=== PATIENT | female | born 1950 | race Caucasian/White ===

== ENCOUNTER → 2020-01-10 20:23 | Outpatient (ROUT) | payer MEDICARE, BC, SELFPAY ==
[2020-01-10 20:31] LABS: Appearance Urine UA CLEAR; Bilirubin Urine UA NEGATIVE (NEGATIVE); Color Urine UA YELLOW; Glucose Urine UA NEGATIVE (Negative); Ketones Urine UA NEGATIVE (NEGATIVE); Leukocyte Esterase Urine UA NEGATIVE (NEGATIVE); Nitrite Urine UA NEGATIVE (Negative); Occult Blood Urine UA NEGATIVE (Negative); Protein Urine UA NEGATIVE (Negative); Specific Gravity Urine UA <=1.005 (1.000-1.035); Urobilinogen Urine UA 0.2 E.U./dL (0.2)
[2020-01-10 20:55] LABS: Bacteria Urine Few (2-10); RBC Urine 0-1/HPF (0-5/HPF); Squamous Epithelial Cell Urine 0-1 /HPF (0-5/HPF); WBC Urine 0-1/HPF (0-5/HPF)
[2020-01-10 20:56] LABS: Culture Indicated Urine Cult Not Indicated
== END ==
PROVIDERS: Visit Provider Internal Medicine
DX: I10 Essential (primary) hypertension (principal)
CPT/HCPCS: 81001

== ENCOUNTER → 2020-01-18 10:14 | Outpatient (CLI) | payer MEDICARE, BC, SELFPAY ==
--- NOTE | 2020-01-18 | DI.RAD.S_ITS ---
PROCEDURE: XR CHEST 2V INDICATIONS: Chronic Cough TECHNIQUE: 2 views of the chest were acquired. COMPARISON: None. FINDINGS: Surgical changes and devices: None. Lungs and pleura: Lungs are clear. No pleural effusions or pneumothorax. Mediastinum: Mediastinal contours are normal. Heart size is normal. Bones and chest wall: No suspicious bony abnormalities. Soft tissues appear unremarkable. IMPRESSION: No acute cardiopulmonary disease process. Dictated by: Kezia Batista MD, PhD on 01/18/2020 at 16:57 Approved by: Kezia Batista MD, PhD on 01/18/2020 at 16:57
[2020-01-18 10:53] LABS: Bacteria Urine None Seen; RBC Urine None Seen (0-5/HPF)
[2020-01-18 12:32] LABS: Add Manual Diff / Slide Review NO; Basophils Absolute Auto 0 /uL (0-100); Basophils Percent Auto 0.5 % (0-2); Eosinophils Absolute Auto 100 /uL (0-450); Eosinophils Percent Auto 3.2 % (2-4); Hematocrit 43.2 % (36-46); Hemoglobin 14.5 g/dL (12.0-16.0); Lymphocytes Absolute Auto 1900 /uL (1100-4500); Lymphocytes Percent Auto 46.4 % (25-40); Mean Corpuscular HGB Conc 33.5 % (30-36); Mean Corpuscular Hemoglobin 32.2 PG (26-34); Mean Corpuscular Volume 96.2 fL (80-100); Monocytes Absolute Auto 600 /uL (0-900); Monocytes Percent Auto 13.6 % (3-14); Neutrophils Absolute Auto 1500 /uL (1500-7000); Neutrophils Percent Auto 36.3 % (50-75); Platelet Count 229 X10^3/uL (150-400); Red Blood Cell Count 4.49 X10^6/uL (4.0-5.2); Red Cell Distribution Width 13.1 % (11.6-14.8); White Blood Cell Count 4.2 X10^3/uL (4.5-11.0)
[2020-01-18 12:37] LABS: Appearance Urine UA CLEAR; Bilirubin Urine UA NEGATIVE (NEGATIVE); Color Urine UA YELLOW; Glucose Urine UA NEGATIVE (Negative); Ketones Urine UA NEGATIVE (NEGATIVE); Leukocyte Esterase Urine UA NEGATIVE (NEGATIVE); Nitrite Urine UA NEGATIVE (Negative); Occult Blood Urine UA NEGATIVE (Negative); Protein Urine UA NEGATIVE (Negative); Specific Gravity Urine UA <=1.005 (1.000-1.035); Urobilinogen Urine UA 0.2 E.U./dL (0.2)
[2020-01-18 12:39] LABS: pH Urine UA 6.5 (4.5-8.0)
[2020-01-18 12:40] LABS: Amorphous Sediment Urine 3+; Culture Indicated Urine Cult Not Indicated; Squamous Epithelial Cell Urine 5-10 /HPF (0-5/HPF); WBC Urine 1-5/HPF (0-5/HPF)
[2020-01-18 12:44] LABS: Alanine Aminotransferase 62 IU/L (<35); Albumin 4.4 g/dL (3.5-5.0); Albumin Globulin Ratio 1.4 (1.0-2.8); Alkaline Phosphatase 58 U/L (38-126); Aspartate Aminotransferase 48 IU/L (14-36); BUN Creatinine Ratio 21.6 (6-22); Bilirubin Total 0.6 mg/dL (0.2-1.3); Blood Urea Nitrogen 11 mg/dL (7-17); Calcium 9.6 mg/dL (8.4-10.2); Carbon Dioxide 31 mmol/L (22-32); Chloride 101 mmol/L (98-107); Cholesterol 265 mg/dL (140-199); Estimated Glomerular Filt Rate > 60.0 mL/min (>60); Globulin 3.2 g/dL (1.7-4.1); Glucose 131 mg/dL (80-110); HDL Cholesterol 62 mg/dL (40-60); HEMOLYSIS 20 (0-50); LDL Cholesterol Calculated 176 mg/dL (<100); Potassium 4.6 mmol/L (3.4-5.1); Sodium 137 mmol/L (137-145); Total Protein 7.6 g/dL (6.3-8.2); Triglycerides 133 mg/dL (35-150)
[2020-01-18 12:55] LABS: NT-proBNP (BNP-Adult 18+) 139 pg/mL (<125)
[2020-01-18 13:44] LABS: TSH w/ Reflex to FT4 0.62 uIU/mL (0.47-4.68)
== END ==
PROVIDERS: PCP Internal Medicine; Referring Provider Internal Medicine; Visit Provider Internal Medicine
DX: R05 Cough (principal); I10 Essential (primary) hypertension; M54.16 Radiculopathy, lumbar region; G47.33 Obstructive sleep apnea (adult) (pediatric); E78.5 Hyperlipidemia, unspecified; R06.00 Dyspnea, unspecified
CPT/HCPCS: 36415; 71046; 80053; 80061; 81001; 83880; 84443; 85025

== ENCOUNTER → 2020-02-22 07:56 | Outpatient (CLI) | payer MEDICARE, BC, SELFPAY ==
--- NOTE | 2020-02-22 | DI.ECHO.S_ITS ---
[facility] +---------+ : : [address] : [address] : : : : [id number] : : : : Phone: [phone]+ Echocardiogram Report + + :Name: NICHOLAS HYDE Study Date: 02/22/2020 Height: 64 in : :[facility] Weight: 186 lb : : Gender: Female BSA: 1.9 m2 : :: 1950 Age: 69 yrs BP: 145/90 mmHg: :Reason For Study: DYSPNEA : :Ordering Physician: NGOZI SORENSEN : :L Performed By: Jossie Strickland : :Referring: NGOZI SORENSEN L : + + Interpretation Summary Left ventricular systolic function is normal with an estimated ejection fraction of 55 to 60% without any focal wall motion abnormality. There is a probable diastolic relaxation abnormality but normal filling pressures. The right ventricle appears normal. Right ventricular systolic pressure is estimated at 25 mmHg with a CVP of 3 mmHg. The left atrium is mildly enlarged and the right atrium is normal in size. There is a small disturbed jet of flow on the right side of of the septum secundum, suggesting a small patent foramen ovale, but probably without any hemodynamic impact. There is mild mitral and mild tricuspid regurgitation but no other significant valvular abnormality. The ascending aorta is mild??moderately enlarged and the aortic arch is at the upper limits of normal. Procedure: A two-dimensional transthoracic echocardiogram with color flow and Doppler was performed. The study quality was technically adequate. There is no prior echocardiogram noted for this patient. The patient was in sinus rhythm with heart rates between 68-82 bpm during the exam. Left Ventricle: The left ventricle appears normal in size, wall thickness, and systolic function without any focal wall motion abnormalities. The estimated left ventricular end diastolic volume is 68 ml. The ejection fraction is estimated to be 55-60%. Diastolic parameters suggest a relaxation abnormality of the left ventricle, consistent with probable normal filling pressures. Right Ventricle: The right ventricle is normal in size and function. Atria: The left atrium is mildly dilated. Right atrial size is normal. A patent foramen ovale is present. Mitral Valve: There is mild mitral annular calcification. The mitral valve leaflets are mildly calcified. There is mild mitral regurgitation. Aortic Valve: The aortic valve is trileaflet. The aortic valve opens well. There is no aortic valve stenosis. No aortic regurgitation is present. Tricuspid Valve: The tricuspid valve is normal in structure and function. There is mild tricuspid regurgitation. The right ventricular systolic pressure is estimated to be at least 25 mmHg based on an estimated right atrial pressure of 3 mm Hg. Pulmonic Valve: The pulmonic valve leaflets are thin and pliable; valve motion is normal. There is trace pulmonic regurgitation. Great Vessels: The aortic root is normal size. The ascending aorta is mild- moderately enlarged. The aortic arch is at the upper limits of normal in size. The IVC is of normal diameter and collapses greater than 50% with a sniff. This suggests a low right atrial pressure of 3 mm Hg. Pericardium/ Pleura There is no pericardial effusion. There is no pleural effusion. MMode/2D Measurements & Calculations LVIDd: 3.7 cm LVOT diam: 2.0 cm LVIDs: 2.7 cm Ao root diam: 3.6 cm FS: 27.2 % asc Aorta Diam: 3.9 cm EPSS: 0.49 cm Ao Arch Diam (Prox Trans): 3.0 cm IVSd: 0.93 cm LVPWd: 0.97 cm LV menchaca. diameter/BSA (cm/m^2): 1.9 LV sys. diameter/BSA (cm/m^2): 1.4 LA A2 area: 26.8 cm2 RA long axis: 4.9 cm LA A4 area: 20.1 cm2 RA area: 13.1 cm2 LA length (vol): 5.9 cm RA vol: 29.7 ml LA vol: 77.8 ml RA : 15.7 ml/m2 LA vol index: 41.0 ml/m2 IVC diam: 1.3 cm RVD1 (basal): 3.1 cm TAPSE: 1.9 cm Doppler Measurements & Calculations Ao V2 max: 127.9 cm/sec LVOT Max Shantanu: 84.8 cm/sec Ao V2 mean: 91.7 cm/sec LV V1 max P.9 mmHg Ao max P.5 mmHg LV V1 VTI: 21.1 cm Ao mean P.7 mmHg ALONSO(I,D): 2.1 cm2 Ao V2 VTI: 31.4 cm ALONSO(V,D): 2.0 cm2 sev ratio: 0.67 ALONSO indexed to BSA (cm^2/m^2): 1.1 MV E max shantanu: 76.0 cm/sec TR max shantanu: 234.2 cm/sec MV A max shantanu: 85.4 cm/sec TR max P.9 mmHg MV E/A: 0.89 PA V2 max: 52.6 cm/sec Med Peak E' Shantanu: 4.8 cm/sec PA V2 mean: 34.5 cm/sec E/E' med: 15.9 PA mean P.54 mmHg Lat Peak E' Shantanu: 6.6 cm/sec PA pr(Accel): 8.8 mmHg E/E' lat: 11.6 E/e' average: 13.8 MV dec time: 0.23 sec SV(LVOT): 64.6 ml Reading Physician:01:24 PM
[2020-02-22 10:14] LABS: Alanine Aminotransferase 81 IU/L (<35); Cholesterol 216 mg/dL (140-199); HDL Cholesterol 69 mg/dL (40-60); LDL Cholesterol Calculated 120 mg/dL (<100); Triglycerides 137 mg/dL (35-150)
== END ==
PROVIDERS: PCP Internal Medicine; Referring Provider Internal Medicine; Visit Provider Internal Medicine
DX: I08.1 Rheumatic disorders of both mitral and tricuspid valves (principal); I77.89 Other specified disorders of arteries and arterioles; R06.00 Dyspnea, unspecified; E78.5 Hyperlipidemia, unspecified; E11.65 Type 2 diabetes mellitus with hyperglycemia; I10 Essential (primary) hypertension; R74.01 Elevation of levels of liver transaminase levels
CPT/HCPCS: 36415; 80061; 84460; 93306

== ENCOUNTER → 2020-04-11 14:22 | Outpatient (CLI) | payer MEDICARE, BC, SELFPAY ==
[2020-04-11 15:35] LABS: Add Manual Diff / Slide Review NO; Basophils Absolute Auto 0 /uL (0-100); Basophils Percent Auto 0.5 % (0-2); Eosinophils Absolute Auto 100 /uL (0-450); Eosinophils Percent Auto 3.1 % (2-4); Hematocrit 41.4 % (36-46); Hemoglobin 13.9 g/dL (12.0-16.0); Lymphocytes Absolute Auto 1900 /uL (1100-4500); Lymphocytes Percent Auto 41.9 % (25-40); Mean Corpuscular HGB Conc 33.6 % (30-36); Mean Corpuscular Hemoglobin 32.1 PG (26-34); Mean Corpuscular Volume 95.6 fL (80-100); Monocytes Absolute Auto 500 /uL (0-900); Monocytes Percent Auto 10.7 % (3-14); Neutrophils Absolute Auto 2000 /uL (1500-7000); Neutrophils Percent Auto 43.8 % (50-75); Platelet Count 243 X10^3/uL (150-400); Red Blood Cell Count 4.33 X10^6/uL (4.0-5.2); White Blood Cell Count 4.5 X10^3/uL (4.5-11.0)
[2020-04-11 16:04] LABS: BUN Creatinine Ratio 15.2 (6-22); Blood Urea Nitrogen 7 mg/dL (7-17); Calcium 9.7 mg/dL (8.4-10.2); Carbon Dioxide 28 mmol/L (22-32); Chloride 105 mmol/L (98-107); Estimated Glomerular Filt Rate > 60.0 mL/min (>60); Glucose 124 mg/dL (80-110); HEMOLYSIS 19 (0-50); Potassium 4.5 mmol/L (3.4-5.1); Sodium 137 mmol/L (137-145)
== END ==
PROVIDERS: PCP Internal Medicine; Referring Provider Orthopaedic Surgery; Visit Provider Orthopaedic Surgery
DX: Z01.818 Encounter for other preprocedural examination (principal); Z01.812 Encounter for preprocedural laboratory examination
CPT/HCPCS: 36415; 80048; 85025; 93005; 93010

== ENCOUNTER → 2020-04-30 15:28 | Outpatient (CLI) | payer MEDICARE, BC, SELFPAY ==
[2020-04-30 18:05] LABS: COVID19 -Nasal RAPID Negative (Negative)
== END ==
PROVIDERS: PCP Internal Medicine; Visit Provider Physician Assistant
DX: Z01.812 Encounter for preprocedural laboratory examination (principal); Z20.822 Contact with and (suspected) exposure to COVID-19
CPT/HCPCS: 87635; C9803

== ENCOUNTER 2020-05-01 08:23 | Inpatient (IN) | payer MEDICARE, BC, SELFPAY ==
[2020-05-01] VITALS (20 sets, daily range): BP systolic 83–144; BP diastolic 44–85; PULSE 55–74; RESP 9–20; TEMP 36–36.7; O2SAT 90–100; BMI 29.7
[2020-05-01] MEDS: LACTATED RINGERS 1,000 ML 42 ML IV ×2 (09:03→10:48)
--- NOTE | 2020-05-01 09:06 | PM.PREOP ---
Pre-operative Note COVID-19 COVID-19 status: Negative Result date/Date tested (Pos, Neg/Pending): 04/30/20 Interval Note History & Physical reviewed/Exam performed by Physician: Yes Changes to H&P: No
[2020-05-01 09:46] LABS: Glucose 121 mg/dL (80-110)
[2020-05-01 09:48] LABS: Hemoglobin A1C% w Est Avg Glu 6.2 % (4.0-6.0)
[2020-05-01] MEDS: CEFAZOLIN 2 GM/100 ML FROZ.PIGGY IV ×2 (10:00→18:26)
--- NOTE | 2020-05-01 10:10 | DI.RAD.S_ITS ---
PROCEDURE: XR LUMBAR SPINE 2-3V INDICATIONS: L3-4, L4-5 TLIF/LAMINECTOMIES TECHNIQUE: 2 views of the lumbar spine were acquired. COMPARISON: None. FINDINGS: Intraoperative spot fluoroscopic images demonstrate postsurgical changes with fixation hardware including pedicle screws and interbody rods extending from the L3 through L5 levels with disc spacers at the L3-4 and L4-5 levels. IMPRESSION: Postsurgical changes noted at the L3-4 through L4-5 levels. Dictated by: Kameron Perez M.D. on 05/01/2020 at 14:34 Approved by: Kameron Perez M.D. on 05/01/2020 at 14:35
--- NOTE | 2020-05-01 10:38 | SUR.OPER ---
Prone on spine table, head in foam head support, padded chest and pelvic supports, gel pad at knees, lower legs supported by pillows; nipples, genitalia and toes free of pressure, arms secured on foam padded arm boards at <90 degrees abduction. Tape over blanket at thigh secured to table.
[2020-05-01] MEDS: THROMBIN (RECOMBINANT) 5,000 UNIT VIAL 5000 UNIT TOP (10:45)
[2020-05-01] MEDS: VANCOMYCIN 1,000 MG VIAL 1000 MG TOP (10:45)
[2020-05-01] MEDS: SODIUM CHLORIDE 0.9% 1,000 ML, GENTAMICIN 80 MG IRR (10:46)
[2020-05-01] MEDS: BUPIVACAINE 0.5% (PF) 4 ML, MORPHINE-PF 4 MG, BUTORPHANOL 1 MG, fentaNYL 100 MCG INJ (10:47)
--- NOTE | 2020-05-01 13:48 | P.OP_ITS ---
Operative Date/Time/Diagnoses Date of procedure: 05/01/20 Time of procedure: 13:52 Pre-op diagnosis: Lumbar stenosis with radiculopathy Lumbar spondylolisthesis Post-op diagnosis: same Procedure & Clinicians Procedure: L3-4, L4-5 TLIF (posterior/posterior interbody fusion)with cages L3, L4, L5 screws Iliac crest bone graft aspirate L3-4, L4-5 laminectomies Use of microscope Placement of epidural catheter Same procedure as scheduled: Yes Indications: [age] year old female with intractable pain from stenosis. They had failed conservative management and requested operative intervention. Risks and benefits of surgery were discussed and appropriate consents were obtained. Surgeon: Marek Srinivasan Director Of It Operations: Deanne Brush Anesthesia Type: General Operative Notes Findings: None Closure Type: primary Specimen(s): none sent Prosthetic devices, grafts, tissues, transplants, or devices: NuVasive MAS Reline screws Globus Rise cage Applied: catheter Estimated Blood Loss (mL): 20 Procedure in detail: The patient was brought to the operating room and intubated on the table. A time-out was performed. They were then rolled over to the well- padded Silvano table in the prone position. Preoperative antibiotics were given. The back was prepped and draped in the standard sterile fashion. Using fluoroscopy, a 6 cm longitudinal incision was made to the right of the midline. We used Bovie to come down to and split the lumbodorsal fascia. Using fluoroscopy and monitoring, we then percutaneously placed Jamshidi needles down the pedicles of L3, L4, and L5 on the right side. These were changed out to guidewires and then we tapped and then placed the NuVasive MAS Reline screw shanks. We then opened up the retractors and used Bovie to clear up the posterolateral gutter as well as medially along the lamina to the spinous processes. A bur was used to decorticate the transverse processes. We brought in the microscope. Using a combination of bur and Kerrison rongeurs, a laminectomy was performed from the right side. We cleared over past the midline and carefully depressed the dura until we were able to decompress the opposite side. We cleared out the neural foramen with a partial facetectomy. This completed the laminectomy at L4-5. This was separate and distinct from the TLIF approach as we were decompressing the canal with the traversing L5 and S1 roots as well as the exiting L4 roots. We then began the TLIF prep. A complete facetectomy was finished on this side at L4-5. We carefully cleaned up the remainder of the foramen until we could easily retract the exiting root as well as clearing medially below the dura and expose the disc space. The disc was prepped with bipolar and then an annulotomy was performed. We performed a diskectomy using a combination of paddles, sh avers, pituitaries, and curettes. We distracted the disc using a paddle and locked the retractor in an open position. We then filled the disc space with Osteocel bone graft. We then placed the globus rise cage under fluoroscopy and then filled this in with more bone graft. The distraction on the retractor was released to compress down. This completed the posterior interbody fusion portion of the TLIF at L4-5. We then went up to the L3-4 level in open the retractors. We cleaned the gutter decorticated the transverse process. We cleared medially. Again a complete laminectomy was performed from the right-hand side using a bur and Kerrisons. We carefully depressed the dura and reach to the opposite side remove the facet hypertrophy and ligamentum hypertrophy. We had to perform facetectomies to clear out the foramen. This completed the laminectomy at L3-4. This was distinct from the TLIF approach as we had to decompress the canal with the traversing L4 through S1 roots as well as the exiting L3 roots. We then carefully retracted the dura and prepped the disc space. A diskectomy was performed with pituitaries and curettes. We placed bone graft into the disc space and placed our globus rise cage and expanded it under fluoroscopy. More bone graft was packed in. This completed the posterior interbody fusion portion of the TLIF at L3-4. The wound was copiously irrigated. An epidural catheter was then prepped with 4 mL of 0.5% Marcaine, 1 mg Stadol, 4 mg Duramorph, and 100 mcg of fentanyl and placed in the spinal canal by carefully depressing the dura and advancing it 6 cm cephalad under the remaining lamina without resistance. We then placed the screw heads, aida, and locked down the set screws. The wound was copiously irrigated. A small stab incision was made over the PSIS. We used a Jamshidi needle to aspirate several mL of bone marrow from the pelvis. This was mixed with the remaining Osteocel and combined with all of the locally harvested bone graft and placed in the posterolateral gutter for the posterior fusion of the TLIF at L3-4 and L4-5. The muscle fascia was closed. The epidural catheter was then injected without resistance and the catheter was pulled. We then went to the opposite side. Again using fluoroscopy, a 3 cm incision was made and Bovie was used to come down to split the fascia. Using neural monitoring and fluoroscopy, Jamshidi needles were advanced down the pedicles of L3, L4, and L5 on the left side. These were switched over guidewires, tapped, and screws placed. We then placed a aida and locked the set screws on this side. The wound was irrigated. The fascia was closed. Vancomycin powder was placed in the wounds. The superficial and skin were closed. A sterile dressing was placed. The patient was then rolled over ex tubated and brought to recovery room without complications. Complications: none Post-operative Condition: stable Disposition: PACU Plan for aftercare: Inpatient. Up with PT.
--- NOTE | 2020-05-01 14:11 | SUR.PHASEI ---
Pt has met criteria for discharge from PACU: VSS, denied pain or nausea, able to eat ice chips without difficulty, back and L hip dressing C/D/I. Pt very sleepy, appears comfortable and in no obvious distress. Will transfer to room 211 via bed.
--- NOTE | 2020-05-01 14:44 | PC.NURSE ---
Day shift: Pt on unit at approx 1445. BP 88/55. Awakes to voice and touch. Pt is sleepy. 2L NC 99%. SCD's tolerated. Bed alarm on and Pt made HFR for now. Dressing is CDI. Pt tolerated log roll to the rt to visualize the dressing on her back. Cortes patent and draining clear yellow to gravity.
[2020-05-01] MEDS: LACTATED RINGERS 1,000 ML 125 ML IV ×2 (15:00→23:19)
[2020-05-01] MEDS: HYDROCODONE/ACET 5/325 TABLET 1 TAB PO (15:29)
[2020-05-01] MEDS: HYDROMORPHONE 0.5 MG INJ IV (17:25)
[2020-05-01] MEDS: PRAVASTATIN 20 MG TABLET PO (17:50)
[2020-05-01] MEDS: hydrOXYzine pamoate 25 MG CAPSULE PO (18:30)
[2020-05-01] MEDS: HYDROCODONE/ACET 5/325 TABLET 2 TAB PO (19:18)
[2020-05-01] MEDS: MELATONIN 3 MG TABLET 9 MG PO (21:03)
[2020-05-01] MEDS: SENNOSIDES 8.6 MG TABLET 17.2 MG PO (21:03)
[2020-05-01] MEDS: GABAPENTIN 300 MG CAPSULE PO (21:03)
[2020-05-01] MEDS: DOCUSATE 100 MG CAPSULE PO (21:04)
[2020-05-01] MEDS: CELECOXIB 200 MG CAPSULE PO (21:04)
[2020-05-01] MEDS: ONDANSETRON 4 MG/2 ML INJ IV (21:44)
[2020-05-01] MEDS: LORazepam 1 MG TABLET PO (22:04)
--- NOTE | 2020-05-02 00:20 | PC.NURSE ---
Addendum entered by Radha Cornelius R.N. 05/02/20 06:14: Medicated earlier with 1.5 tabs of Vicodin (patient request) and has been mostly sleeping since. Oxygen was removed and sat remains 91% when asleep. Addendum entered by Radha Cornelius R.N. 05/02/20 02:59: Complains of 7/10 achy back pain; medicated with Vicodin. Original Note: 2351: patient is alert and oriented. Breath sounds CTA but has history of sleep apnea not tolerable of CPAP so desats when on RA and sleeping; currently on oxygen at 2L/min per NC with sat of 99% when awake. Remains on continuous oximetry. HRR. Denies nausea. BT hypoactive and patient denies flatus; abdomen is soft. Indwelling catheter is patent; urine is clear frida. Is able to move herself in bed. Gait not assessed as has not yet been out of bed. Dressing to back is CDI. Denies pain but agreeable to ice pack. Wearing bilateral foot SCD's. CMS intact. Fall risk score is high as patient reports tripping and falling a week ago; bed alarm is activated.
[2020-05-02] MEDS: CEFAZOLIN 2 GM/100 ML FROZ.PIGGY IV (01:55)
[2020-05-02] MEDS: HYDROCODONE/ACET 5/325 TABLET 2 TAB PO ×4 (02:53→22:43)
[2020-05-02 05:30] VITALS: BP 105/57; PULSE 77; RESP 18; TEMP 36.8; O2SAT 97
[2020-05-02 06:10] LABS: Hematocrit 34.8 % (36-46); Hemoglobin 11.5 g/dL (12.0-16.0)
--- NOTE | 2020-05-02 07:35 | PM.PNPO.1 ---
Subjective Subjective Date Patient Seen: 05/02/20 Time Patient Seen: 07:35 Interval history: She is doing well. Pain under good control with medications. Exam Vital Signs (past 8 hours): - 05/02/20 05:30 Temperature 98.3 F Pulse Rate 77 Respiratory Rate 18 Blood Pressure 105/57 L Pulse Oximetry 97 Oxygen Delivery Method Nasal Cannula Oxygen Flow Rate 0 Const Orientation: alert and oriented x3 Back/Spine/Pelvis Other: CDI. 5/5 motor both lower extremities. Objective Labs Result Diagrams: 05/02/20 06:00 Labs: Laboratory Results - last 24 hr 05/01/20 05/01/20 05/02/20 09:33 09:33 06:00 Hgb 11.5 L Hct 34.8 L Glucose 121 H Hemoglobin A1c 6.2 H [facility] Medical History (Updated 04/30/20 @ 11:43 by Luisana Alicea RN) Anxiety Chronic back pain Depression DMII (diabetes mellitus, type 2) Former smoker Hyperlipidemia Hypertension Lumbar stenosis with neurogenic claudication Obstructive sleep apnea Prediabetes Spondylolisthesis, lumbar region Surgical History (Updated 04/30/20 @ 11:28 by Luisana Alicea RN) History of hysterectomy (~1999) History of tonsillectomy (~1956) S/P foot surgery, left (~2015) Social History household members: spouse Smoking Status: Former smoker alcohol intake: current Assessment & Plan Post-op Postoperative Procedures: Procedures Operation Date: 05/01/20 09:45 Actual Procedures Side Surgeon p L34 & L45 laminectomies & instrumented fusion (TLIF) w. bone graft Marek Srinivasan MD She is doing well. Start to mobilize today with physical therapy. Anticipate discharge home tomorrow.
[2020-05-02 08:00] VITALS: BP 89/49; PULSE 81; RESP 15; TEMP 36.6; O2SAT 98
--- NOTE | 2020-05-02 10:24 | OT.IP.EVAL ---
Current Diagnoses Major depressive disorder, single episode, unspecified (05/01/20) Anxiety disorder, unspecified (05/01/20) Obstructive sleep apnea (adult) (pediatric) (05/01/20) Spondylolisthesis, lumbar region (05/01/20) Spinal stenosis, lumbar region with neurogenic claudication (05/01/20) Personal history of nicotine dependence (05/01/20) Other specified postprocedural states (05/01/20) Surgery Performed Operation Date: 05/01/20 09:45 Actual Procedures p L34 & L45 laminectomies & instrumented fusion (TLIF) w. bone graft - Marek Srinivasan MD Past Medical History (Last Updated 04/30/20 @ 11:43 by Luisana Alicea, RN) Anxiety Chronic back pain Depression DMII (diabetes mellitus, type 2) Former smoker Hyperlipidemia Hypertension Lumbar stenosis with neurogenic claudication Obstructive sleep apnea Prediabetes Spondylolisthesis, lumbar region Surgical History (Last Updated 04/30/20 @ 11:28 by Luisana Alicea, RN) History of hysterectomy (~1999) History of tonsillectomy (~6) S/P foot surgery, left (~2015) Occupational Therapy Inpatient Evaluation/Re-Eval and able to assist if needed. M1 PT/OT-IP Prior Functional Status Start: 05/02/20 13:04 Freq: NEEDED Status: Active Protocol: Document 05/02/20 10:24 [facility] (Rec: 05/02/20 13:20 [facility] [id number]) Medical Review Prior Functional Status Medical History Reviewed Yes Diet/Fluid Consistency Regular Communication no deficits noted. able to make needs known Mobility and Gait Pt normally had pain and weakness once she walks > 100 ft. She does not uses any AD except walking sticks on uneven surface. She also has difficulty stand up from low level surface. Activities of Daily Living and IADL's independent for ADLs and IADLs without AD. Able to drive. Pt states lately needing more time to get dressed and needing rest breaks while vacuuming. Social History Household Members spouse Living Arrangements House Number of Floors (Floors) Two Floors Number of Stairs To Enter/Railing? 2 MARVIN from garage / front entrance. No rails. Pt lives on main floor. 2nd level= office and crafting room Home Environment High Toilet,Walk in Shower Home Equipment Front Wheel Walker,Straight Cane,Tub Transfer Bench,Hand Held Shower,Grab Bars In Shower Employment Status Retired Additional Social History Comment Pt lives with her active and healthy Valente in [facility]. Dtr and son in law in [place] and able to assist if needed. M2 OT-IP Current Condition Start: 05/02/20 13:04 Freq: Status: Active Protocol: Document 05/02/20 10:24 [facility] (Rec: 05/02/20 13:20 [facility] [id number]) Occupational Therapy Current Condition Current Condition Evaluation Date 05/02/20 Treatment Diagnosis S/p L3-4, L4-5 TLIF Diagnosis Onset Date 05/01/20 Post Operative Precautions Lumbar Precautions Log Roll,No Twisting,Limit Bending,Lifting Restriction of 10 lbs,Gait Belt above Incisional Area M3 OT- IP Subjective and Pain Start: 05/02/20 13:04 Freq: Status: Active Protocol: Document 05/02/20 10:24 [facility] (Rec: 05/02/20 13:20 [facility] [id number]) OT- Subjective Occupational Therapy Visit Type Type Initial Evaluation Visit Start Time 10:24 Visit Stop Time 11:10 Total Visit Minutes 46 Occupational Therapy Visit Comments Patient Comments Pt agreed to get up for OT eval. Patient/Caregiver Goals TO go home. OT Pain Assessment Pain When Pain Assessed At Rest Pain Present Pain Present Pain Reported Location back Intensity 6 Scale Used Numeric (0 - 10) M4 OT- IP ADL's Start: 05/02/20 13:04 Freq: Status: Active Protocol: Document 05/02/20 10:24 [facility] (Rec: 05/02/20 13:20 [facility] [id number]) OT [id number] Comments OT Self-Feeding Comments NOt at meal time. OT ADL-Grooming General Evaluation Grooming Ability Standby Assistance Areas Needing Assistance Retrieving/Set-up of Grooming Items Comments OT Grooming Comments WHile standing with FWW at the sink. OT ADL-Oral Care General Eval Oral Care Ability Standby Assistance Comments Oral Care Comments Educated to spit into a cup to best follow her back precautions. OT ADL-Dressing General Eval Lower Body Dressing Ability Maximum Assistance Areas Needing Assistance Socks Comments OT Dressing Comments Educated pt on LB dressing equipment and states her to assist her or just buy a magnet valve assembler if needed. OT ADL-Toileting General Evaluation Toileting Ability Standby Assistance Comments OT Toileting Comments Pt not having to go but able to demonstrate good follow through of back precautions for wiping . OT ADL-Bathing Comments OT Bathing Comments Pt states to try tomorrow. M5 OT- IP IADL's Start: 05/02/20 13:04 Freq: Status: Active Protocol: Document 05/02/20 10:24 [facility] (Rec: 05/02/20 13:20 [facility] [id number]) OT-Instrumental Activities of Daily Living Home Safety Awareness Awareness of Need for Assistance at Home Good Awareness Ability to Problem Solve Emergency Able to Problem Solve Situations Medication Management Medication Management Comments Pt states her will assist her if needed. Money Management Money Management Comments Pt states her will assist her if needed. Meal Preparation Meal Preparation Caregiver Provides Assist Fire Boat Engineer Fire Boat Engineer Caregiver Provides Assist M6 OT- IP Functional Cognition Start: 05/02/20 13:04 Freq: Status: Active Protocol: Document 05/02/20 10:24 [facility] (Rec: 05/02/20 13:20 [facility] [id number]) Cognitive Factors Limiting Selfcare Function Cognitive Ability Level of Alertness Alert Patient Orientation Name,Place,Situation Attention Span Ability Capable of Focused Attention, Capable of Sustained Attention Ability to Follow Commands Able to Follow One Step Commands Safety Awareness Decreased Ability to Apply Precautions,Underestimates Need for Assistance Cognitive Comments Cognitive Assessment Comments Pt needing MOD VC to incorporate back precautions especially during bed mobility needs. Pt tends to want to twist during bed mobility needs. OT- Vision and Hearing OT- Hearing Assessment OT- Hearing Assessment WFL M7 OT- IP Mobility and Balance Start: 05/02/20 13:04 Freq: Status: Active Protocol: Document 05/02/20 10:24 [facility] (Rec: 05/02/20 13:20 [facility] [id number]) OT- Bed Mobility Assessment Sit to Supine Sit to Supine Assist Contact Guard Assistance OT-Transfer Assessment Sit to and From Stand Sit to and from Stand Contact Guard Assistance Transfers Transfer Ability Contact Guard Assistance Technique Transfer Destination Bed,Chair Devices Transfer Assistive Devices Gait Belt,Front Wheeled Walker OT- Balance Assessment Sitting Balance and Reactions Static Sitting Balance Ability Normal Dynamic Sitting Balance Ability Good Standing Balance and Reactions Static Standing Balance Ability Fair M8 OT- IP Objective Assessments Start: 05/02/20 13:04 Freq: Status: Active Protocol: Document 05/02/20 10:24 [facility] (Rec: 05/02/20 13:20 [facility] [id number]) OT-Muscle Tone Assessment Muscle Tone WNL Yes M9 OT- IP Assessment and Plan Start: 05/02/20 13:04 Freq: Status: Active Protocol: Document 05/02/20 10:24 [facility] (Rec: 05/02/20 13:20 [facility] [id number]) OT Summary Assessment and Plan Potential Rehabilitation Potential Good Analytic Complexity at Evaluation Low Summary OT Impairments Pain,Balance,Functional Cognition,Functional Mobility, Grooming,Dressing,Toileting, Bathing,Toilet Transfers, Shower Transfers,Activity Tolerance Progress Towards Goals Progressing Toward Goals Assessment Summary Pt low complexity and main barrier are steps, needing reminders to incorporate back precautions during bed mobility needs, and now needing one person assist for ADl needs. Pt has supportive spouse to assist her at home. Goals Grooming Goal Independent Dressing Goal Independent Toileting Goal Independent Bathing Goal Independent Toilet Transfer Goal Independent Shower Transfer Goal Independent Patient/Caregiver Education Goal Demonstrate Post-Op Precautions,Caregiver Independent Assisting Patient Days to Meet Goals 7 Frequency of Treatment Frequency Of Treatment Once a Day Treatment Plan OT Treatment Plan ADL Training,Functional Cognition Training,Functional Mobility,Patient/Family Education,Discharge Planning Other Treatment Recommendations and Next shower Treatment Focus Discharge Recommendations OT Discharge Recommendations Home with Assistance Home Equipment Needs shower chair, FWW Transportation Needs at Discharge Private Vehicle
--- NOTE | 2020-05-02 10:27 | CM.DANOTE ---
DCP/Assessment: Reviewed chart. Patient is a 69yr old female admitted to [facility] for elective spine surgery performed on 05-[address] Srinivasan. PCP is Dr. Jim. Primary payor is 1)Medicare 2)[facility]. Met with patient this AM explained CM/SW role. Patient resting in bed, alert and oriented at time of visit. Patient reports that her plan is to d/c home when stable. Provider notes indicate that d/c likely tomorrow if stable. Patient reports that she was previously I with all ADL's. Patient indicates that she has supportive spouse/Valente and she does not anticipate any d/c planning needs. Therapy evaluation pending. P: Home when medically stable. CM team to follow closely if needs were to arise. MARY KAY Vasquez Discharge Planning/Care Management Advanced directive, confirm from FAMILY Start: 05/01/20 15:21 Freq: Q24H Status: Active Protocol: Document 05/01/20 16:00 [facility]W (Rec: 05/01/20 17:21 HCW [id number]) Advance Directive, confirm on record Time 17:18 Person contacted patient Copy received No Document 05/01/20 21:00 [facility]GS (Rec: 05/01/20 21:24 MGS [id number]) Advance Directive, confirm on record Time 17:18 Person contacted patient Copy received No CM Discharge Assessment Start: 05/02/20 10:24 Freq: Status: Active Protocol: Document 05/02/20 10:24 K[facility] (Rec: 05/02/20 10:27 KJS [id number]) Discharge Planning Assessment Assigned Call Center Associate MARY KAY Vasquez Contact Information Valente Billingsley (spouse) # Advance Directives? No Advance Directives on File No History Provided By Patient,Medical Record Has Patient been admitted in last 30 No days? Prior Living Arrangements House Household Members spouse Type of transporation used prior to Drives own vehicle admit Independent with ADL's Yes Is patient alert and oriented? Yes Caregiver for Another No Barriers to Discharge No Discharge Plan Home Transportation Arrangement Family to provide transport. Whiteboard Updated in Patient Room with Yes name and ext. # of Call Center Associate Review Status In Process Next Review Type Continued Stay Review Pre-Anesthesia Assessment Start: 04/16/20 12:49 Freq: Status: Complete Protocol: Document 04/16/20 12:49 [facility] (Rec: 04/16/20 12:55 [facility] [id number]) Pre-Anesthesia Assessment PAC Comment Please draw A1c with IV start - pt will bring the order Preferred Name Bernadette Patient Information Reviewed Via Chart Review,Phone Assessment Assessment Completed With Patient Diagnostic Results BMP/CMP,CBC,EKG Primary Care Provider Emma Jim Medical Clearance Received Yes Seen Specialist in Last 12 Months Yes Specialist Seen Orthopedist Preferred Language Croatian Livestock Trucker Required No Height 165.1 cm Hearing Ability Normal Visual Assist Glasses Dentition Type Teeth, Natural Present Barriers to Learning Visual Other Aids No Hx Anesthesia Reactions No Hx Family Anesthesia Reaction No Hx Malignant Hyperthermia No Hx Blood Transfusions No Hx Blood Transfusion Reaction No Anesthesia Review Requested No Museum Service Scheduler No alcohol intake current alcohol intake frequency holidays/special occasions only Smoking Status Former smoker Tobacco type cigarettes Has it been 2 weeks or less since No patient quit smoking how long ago did patient quit smoking 1976 Substance Use Type marijuana,opiates,prescription drug Comment occasional edible Pain Present Pain Reported Comment low back Musculoskeletal Symptoms Abnormal Gait,Back Pain, Difficulty Walking,Muscle Cramps,Muscle Weakness, Numbness,Radiating Pain into Limb History of Falling (Recent or History of Yes ) Comment numbness in feet, occas tingling in legs Prosthesis or Orthotic Device Cane Gait/Transferring Normal/bedrest/immobile Mental Status Oriented to own ability Comment occas chavez use Is patient on oxygen? No Does patient have MAYEN/SOB No Hx Sleep Apnea Yes CPAP/BIPAP use prescribed not used Will Bring CPAP/BIPAP DOS No Currently Taking a Beta Kael Yes: Atenolol Can You Climb a Flight of Stairs Without Yes SOB Hx Chest Pain No Hx SOB No Hx Syncope or Dizziness No Anti-Coagulant Therapy No Has a Desktop Specialist No Cardiac Testing Yes: Echo 02/22/20 EF 55-60% @ [facility] Hx Pacemaker/ICD No Cardiac Clearance Received Not Applicable Diet Type At Home Regular dysphagia No Gastrointestinal Symptoms Constipation Bladder Pattern Frequency,Incontinent, Stress, Nocturia Urinary Catheter Present No Hx Urinary Self Catheterization No Comment has been told both prediabetes and diabetes, plans A1c Patient No Lactating No Hx Drug Resistant Organism No Presence of External or Internal Medical No Devices Have you had any close contact with No someone diagnosed with COVID-19? Are you experiencing any of these No symptoms symptoms? Evaluation/Screening for possible COVID- Yes 19 infection completed? Comment Covid test 04/30/20 at Marital Status Lives With spouse Prior Living Arrangements House Number of Floors (Floors) Two Floors Number of Stairs To Enter/Railing? 2 steps into house Support System Family,Spouse Does the Patient Have Assistance After Yes Surgery Patient Discharge Plan Description Home Health Feels Safe in Current Environment Yes Been Physically Hurt or Threatened By a No Person in Current Environment Do you have thoughts of harming yourself None or others? Are you currently considering suicide? No Do you have a plan to hurt yourself or No Plan others? Do You Have Any Spiritual Beliefs That No May Affect Your HC Choices? Do You Have Any Cultural Practices That No May Affect Your HC Choices? Who Can We Speak to About Patient's Care Family & Friends Identifying Code for Release of Patient Declined Information Health Care Proxy/Next of Kin - Isaac Billingsley Health Care Proxy Emergency Contact Name - Isaac Billingsley Emergency Contact Advance Directives? Yes Advance Directives on File No Requested Patient Bring Advanced Yes Directives DOS Power of Project Buyer she will check PAC Instructions Assistance for 24 hours post- op,Do not shave/clip surgical site,Durable medical equipment ,Medications to take/avoid, Nasal antibiotic,No ETOH/ petroleum product on skin DOS, NPO,Post-op transportation,Pre -op antibiotic,Pre-surgical wash,Sensory aids,Sturdy shoes /comfortable clothes,Do not bring valuables and remove jewelry
[2020-05-02] MEDS: CELECOXIB 200 MG CAPSULE PO ×2 (10:33→20:40)
[2020-05-02] MEDS: AMLODIPINE 5 MG TABLET PO (10:33)
[2020-05-02] MEDS: ASPIRIN 81 MG CHEW TAB PO (10:33)
[2020-05-02] MEDS: VITAMIN B COMPLEX 1 CAPSULE 1 CAP PO (10:34)
[2020-05-02] MEDS: MULTIVITAMIN 1 TABLET 1 TAB PO (10:34)
[2020-05-02] MEDS: DOCUSATE 100 MG CAPSULE PO ×2 (10:34→20:40)
[2020-05-02] MEDS: lisinopriL 20 MG TABLET 40 MG PO (10:34)
[2020-05-02] MEDS: CHOLECALCIFEROL (VITAMIN D3) 5,000 UNIT TABLET 5000 UNIT PO (10:35)
[2020-05-02 11:01] VITALS: BP 118/70; PULSE 89; RESP 16; TEMP 36.6; O2SAT 98
[2020-05-02 11:55] VITALS: O2SAT 100
--- NOTE | 2020-05-02 12:11 | PT.IIE ---
Current Diagnoses Major depressive disorder, single episode, unspecified (05/01/20) Anxiety disorder, unspecified (05/01/20) Obstructive sleep apnea (adult) (pediatric) (05/01/20) Spondylolisthesis, lumbar region (05/01/20) Spinal stenosis, lumbar region with neurogenic claudication (05/01/20) Personal history of nicotine dependence (05/01/20) Other specified postprocedural states (05/01/20) Surgery Performed Operation Date: 05/01/20 09:45 Actual Procedures p L34 & L45 laminectomies & instrumented fusion (TLIF) w. bone graft - Marek Srinivasan MD Surgical History (Last Updated 04/30/20 @ 11:28 by Luisana Alicea, RN) History of hysterectomy (~1999) History of tonsillectomy (~1956) S/P foot surgery, left (~2015) Medical History (Last Updated 04/30/20 @ 11:43 by Luisana Alicea, RN) Anxiety Chronic back pain Depression DMII (diabetes mellitus, type 2) Former smoker Hyperlipidemia Hypertension Lumbar stenosis with neurogenic claudication Obstructive sleep apnea Prediabetes Spondylolisthesis, lumbar region Physical Therapy Inpatient Evaluation/Re-Eval M1 PT/OT-IP Prior Functional Status Start: 05/02/20 08:20 Freq: NEEDED Status: Active Protocol: Document 05/02/20 09:45 (Rec: 05/02/20 12:11 [id number]) Medical Review Prior Functional Status Medical History Reviewed Yes Diet/Fluid Consistency Regular Communication no deficits noted. able to make needs known Mobility and Gait Pt normally had pain and weakness once she walks > 100 ft. She does not uses any AD except walking sticks on uneven surface. She also has difficulty stand up from low level surface. Activities of Daily Living and IADL's independent for ADLs and IADLs without AD. Able to drive. Social History Household Members spouse Living Arrangements House Number of Floors (Floors) Two Floors Number of Stairs To Enter/Railing? 2 MARVIN from garage / front entrance. No rails. Pt lives on main floor. 2nd level= office and crafting room Home Environment High Toilet,Walk in Shower Home Equipment Front Wheel Walker,Straight Cane,Tub Transfer Bench,Hand Held Shower,Grab Bars In Shower Employment Status Retired Additional Social History Comment Pt lives with her active and healthy Valente in [facility]. Dtr and son in law in [place] and able to assist if needed. M2 PT-IP Current Condition Start: 05/02/20 08:20 Freq: NEEDED Status: Active Protocol: Document 05/02/20 09:45 (Rec: 05/02/20 12:11 [id number]) Physical Therapy Current Condition Current Condition Evaluation Date 05/02/20 Treatment Diagnosis L3-5 laminectomies and TLIF, difficulty for walking Onset Date 05/01/20 Precautions Lumbar Precautions Log Roll,No Twisting,Limit Bending,Lifting Restriction of 10 lbs,Gait Belt above Incisional Area Weight Bearing Status Weight Bearing Status Weight Bear as Tolerated M3 PT-IP Subjective Start: 05/02/20 08:20 Freq: NEEDED Status: Active Protocol: Document 05/02/20 09:45 [facility] (Rec: 05/02/20 12:11 [id number]) Subjective Physical Therapy Visit Type Type Initial Evaluation Visit Start Time 09:45 Visit Stop Time 10:15 Total Visit Minutes 30 Number of GRAVEL HAULER Visits 0 Physical Therapy Visit Comments Patient Comments I feeling fine as long as im laying down Patient Goals To be able to regain her mobility and strength Therapy Pain Assessment Pain When Pain Assessed During Mobility Pain Present Pain Present Pain Reported Location back Intensity 3 Scale Used Numeric (0 - 10) Description Aching,Burning Pain Management Techniques Timing of Activity with Medications M4 PT-IP Mobility and Gait Start: 05/02/20 08:20 Freq: NEEDED Status: Active Protocol: Document 05/02/20 09:45 (Rec: 05/02/20 12:11 [id number]) PT-Bed Mobility Assessment Rolling Type of Rolling Log Rolling,Roll to Right Level of Assist Contact Guard Assistance Supine to Sit Supine to Sit Contact Guard Assistance, Bedrails Scooting Scooting to Edge of Bed Contact Guard Assistance PT-Transfer Assessment Sit to and From Stand Sit to and from Stand Contact Guard Assistance,Use of Upper Extremities Equipment Transfer Assistive Device Gait Belt,Front Wheeled Walker Orthotic/Prosthetic Devices or Brace: No Transfers Transfer Destination Bed,Chair Transfer Technique Stand Step Pivot Transfer Ability Level of Assist Contact Guard Assistance,Use of Upper Extremities Comments Mobility Comments Pt was in bed upon PT arrival. BP 118/70 in supine. AxO x4 and denied discomfort. She was able to recall all 3/3 post op precautions. She then log rolled to R side with use of R bedrail followed by sidelying to sit CGA. She then stood up with FWW CGA safely. Pt then walked towards room window and made a turn to hallway. Pt was able to maintain postop precautions during ambulation. She completed approx 120 ft in total slowly with FWW CGA. Pt did c/o increased discomfort and soreness at low back. She then returned to room and able to transfer herself safely with stand step pivot and safe descend to chair. Call light placed within reach. BP 122/72 in seated Gait Assessment Gait Gait Assistance Required: Contact Guard Assist Distance (Feet) 120 Able to Maintain Weight Bearing Status Yes During Gait Assistive Devices Assistive Device Gait Belt,Front Wheeled Walker Orthotic/Prosthetic Devices or Brace: No Gait Deviations General Gait Pattern Decreased Stride Length, Decreased Feet Clearance Factors Limiting Gait Function Factors Limiting Gait Function Decreased Activity Tolerance, Decreased Strength,Limited Range of Motion,Pain,Poor Balance Comments Gait Comments see mobility comments Stair Climbing Assessment Comments Stair Climbing Comments did not assess yet PT-Balance Assessment Sitting Balance and Reactions Static Sitting Balance Ability Normal Dynamic Sitting Balance Ability Normal Standing Balance and Reactions Static Standing Balance Ability Good Dynamic Standing Balance Ability Good Device Used FWW M5 PT-IP Objective Assessments Start: 05/02/20 08:20 Freq: NEEDED Status: Active Protocol: Document 05/02/20 09:45 (Rec: 05/02/20 12:11 [id number]) Orientation Orientation/Cognition Level of Alertness Alert Orientation Name,Age,Birthday,Month,Date, Year,Day of Week,Place, Situation Language Function Ability No Deficits Noted Safety Awareness Understands Safety Issues Memory Description No Deficits Noted Gross Range of Motion Upper Extremity ROM Assessment Within Functional Limits Lower Extremity ROM Assessment Within Functional Limits Strength Upper Extremity Strength Assessment Within Functional Limits Lower Extremity Strength Assessment Right Impaired Hip 4-/5 Knee 4-/5 Ankle 4-/5 Comments Strength Comments RLE 4-/5 grossly LLE 5/5 grossly Coordination Assessment Gross Coordination Gross Coordination WNL Sensation Assessment Sensation Gross Sensation WNL Comments Sensation Comments slightly reduced sensation to light touch on L buttocks region M6 PT-IP Treatment Start: 05/02/20 08:20 Freq: NEEDED Status: Active Protocol: Document 05/02/20 09:45 (Rec: 05/02/20 12:11 [id number]) Physical Therapy Treatment Education Education Provided Precautions,Weight Bearing Status,Post-Op Packet,Safety M7 PT-IP Assessment and Plan Start: 05/02/20 08:20 Freq: NEEDED Status: Active Protocol: Document 05/02/20 09:45 (Rec: 05/02/20 12:11 [id number]) PT Summary Assessment and Plan Potential Rehabilitation Potential Excellent Status of Condition at Evaluation Stable Summary Impairments Pain,ROM,Strength,Balance, Sensation,Cognition,Bed Mobility,Transfers,Gait, Activity Tolerance Assessment Summary Pt is a 69 yo female s/p POD 1 L3-5 laminectomies and TLIF. PLOF= pt was independent for all mobility and ADLS/IADLs without AD. CLOF= pt is CGA for all mobility and has good understanding of post op precautions and safety awareness. Pt did well overall and expect her to be DC home with spouse assistance as needed. Goals Bed Mobility Goal Independent Transfer Goal Independent,Front Wheeled Walker Gait Goal Independent,Front Wheel Walker Gait Distance 300 Other Goals 2 MARVIN without railings. Days to Meet Goals 3 Frequency of Treatment Frequency Of Treatment Twice a Day Treatment Plan Physical Therapy Treatment Plan Bed Mobility Training,Transfer Training,Gait Training, Therapeutic Exercise,Balance Retraining,Post Op Education, Discharge Planning,Hot or Cold Pack,Neuromuscular Re-ed Other Recommendations and Next Treatment review precautions Focus mobility as mt stair climbing if needed. Recommendations To Nursing Amount of Assist Needed 1 Person Assist Discharge Recommendations PT Discharge Recommendations Home with Assistance Transportation Needs at Discharge Private Vehicle
--- NOTE | 2020-05-02 15:12 | PT.IPTN ---
Current Diagnoses Major depressive disorder, single episode, unspecified (05/01/20) Anxiety disorder, unspecified (05/01/20) Obstructive sleep apnea (adult) (pediatric) (05/01/20) Spondylolisthesis, lumbar region (05/01/20) Spinal stenosis, lumbar region with neurogenic claudication (05/01/20) Personal history of nicotine dependence (05/01/20) Other specified postprocedural states (05/01/20) Surgery Performed Operation Date: 05/01/20 09:45 Actual Procedures p L34 & L45 laminectomies & instrumented fusion (TLIF) w. bone graft - Marek Srinivasan MD Physical Therapy Treatment Note M2 PT-IP Current Condition Start: 05/02/20 08:20 Freq: NEEDED Status: Active Protocol: Document 05/02/20 09:45 HH (Rec: 05/02/20 12:11 [id number]) Physical Therapy Current Condition Current Condition Evaluation Date 05/02/20 Treatment Diagnosis L3-5 laminectomies and TLIF, difficulty for walking Onset Date 05/01/20 Precautions Lumbar Precautions Log Roll,No Twisting,Limit Bending,Lifting Restriction of 10 lbs,Gait Belt above Incisional Area Weight Bearing Status Weight Bearing Status Weight Bear as Tolerated M3 PT-IP Subjective Start: 05/02/20 08:20 Freq: NEEDED Status: Active Protocol: Document 05/02/20 14:38 LD (Rec: 05/02/20 16:19 LD [id number]) Subjective Physical Therapy Visit Type Type Treatment Note Visit Start Time 14:38 Visit Stop Time 15:12 Total Visit Minutes 34 Notes JENNIFER Ortega lead tx w/ supervision of SURGICAL AIDES TEACHER Madeline. Caregiver training w/ tomorrow 05/03 at 10 am. Number of SURGICAL AIDES TEACHER Visits 1 Physical Therapy Visit Comments Patient Comments Pt agreeable to mobilize with PT. Patient Goals To be able to regain her mobility and strength [ End ] Therapy Pain Assessment Pain When Pain Assessed During Mobility Pain Present Pain Present Pain Reported Location back Intensity 5 Scale Used Numeric (0 - 10) Description Aching,Burning Pain Management Techniques Apply Cold M4 PT-IP Mobility and Gait Start: 05/02/20 08:20 Freq: NEEDED Status: Active Protocol: Document 05/02/20 14:38 LD (Rec: 05/02/20 16:19 LD [id number]) PT-Bed Mobility Assessment Rolling Type of Rolling Log Rolling,Roll to Right Level of Assist Contact Guard Assistance Supine to Sit Supine to Sit Contact Guard Assistance, Bedrails Scooting Scooting to Edge of Bed Standby Assistance PT-Transfer Assessment Sit to and From Stand Sit to and from Stand Contact Guard Assistance,Use of Upper Extremities Equipment Transfer Assistive Device Gait Belt,Front Wheeled Walker Orthotic/Prosthetic Devices or Brace: No Transfers Transfer Destination Chair Transfer Technique Stand Step Pivot Transfer Ability Level of Assist Contact Guard Assistance,Use of Upper Extremities Comments Mobility Comments Pt was lying in bed upon arrival. She was not able to recall any post op precautions initially, during ambulation recalled 2/3 prompting w/ cues . Pt rolled to right side w/ use of R bedrail to come from supine>sit CGA. Then proceeded from sit>stand CGA w/ cueing the use of UE. Pt then ambulated ~ 50 ft using FWW CGA to stairs. Then ambulated an additional ~200 ft, maintaining post op precautions to her room and transferred safely to chair with stand step pivot CGA. Placed call light and other needs within reach. Provided education and discussed caregiver training. Ice pack placed on lumbar spine at the end of tx. Gait Assessment Gait Gait Assistance Required: Contact Guard Assist Distance (Feet) 250 Able to Maintain Weight Bearing Status Yes During Gait Assistive Devices Assistive Device Gait Belt,Front Wheeled Walker Orthotic/Prosthetic Devices or Brace: No Gait Deviations General Gait Pattern Decreased Stride Length, Decreased Feet Clearance Factors Limiting Gait Function Factors Limiting Gait Function Decreased Activity Tolerance, Decreased Strength,Limited Range of Motion,Pain,Poor Balance Comments Gait Comments Pt required CGA w/ use of FWW, maintaining post op precautions and ambulated approx 250 ft. Adjusted height of walker to assist with increase trunk support. Stair Climbing Assessment Evaluation Level of Assist On Stairs Minimal Assistance,1 Person Assistance Devices Stair Climbing Assistive Devices Straight Cane Technique/Endurance Stair Climbing Direction Ascend and Descend Stair Climbing Technique Step to Step Number of Steps Climbed 3 Stair Climbing Set # Repetitions (reps) 1 Comments Stair Climbing Comments Pt required Min A using 2 canes, w/ cues on placement during ascend and descend. Discussed canes on same step descending to maintain upright spinal precautions. Pt reported pain 5/10 during stairs. PT-Balance Assessment Sitting Balance and Reactions Static Sitting Balance Ability Normal Dynamic Sitting Balance Ability Good Standing Balance and Reactions Static Standing Balance Ability Fair Dynamic Standing Balance Ability Good Device Used FWW M5 PT-IP Objective Assessments Start: 05/02/20 08:20 Freq: NEEDED Status: Active Protocol: Document 05/02/20 14:38 LD (Rec: 05/02/20 16:19 LD [id number]) Orientation Orientation/Cognition Level of Alertness Alert Orientation Name,Age,Birthday,Month,Date, Year,Day of Week,Place, Situation Language Function Ability No Deficits Noted Safety Awareness Understands Safety Issues Memory Description No Deficits Noted M6 PT-IP Treatment Start: 05/02/20 08:20 Freq: NEEDED Status: Active Protocol: Document 05/02/20 14:38 LD (Rec: 05/02/20 16:19 LD [id number]) Physical Therapy Treatment Education Education Provided Precautions,Weight Bearing Status,Post-Op Packet,Safety M7 PT-IP Assessment and Plan Start: 05/02/20 08:20 Freq: NEEDED Status: Active Protocol: Document 05/02/20 14:38 LD (Rec: 05/02/20 16:19 LD [id number]) PT Summary Assessment and Plan Potential Rehabilitation Potential Excellent Status of Condition at Evaluation Stable Summary Impairments Pain,ROM,Strength,Balance, Sensation,Cognition,Bed Mobility,Transfers,Gait, Activity Tolerance Assessment Summary Overall pt required SBA during mobility. Required Min A using 2 canes while maintaining precautions. Pt agreed would benefit caregiver training especially stair mgmt for carryover safety at home, scheduled for 05/03 at 10 am. Pt would benefit from further acute therapy for increase strength and endurance. Will continue to reasses. Goals Bed Mobility Goal Independent Transfer Goal Independent,Front Wheeled Walker Gait Goal Independent,Front Wheel Walker Gait Distance 300 Other Goals 2 MARVIN without railings. Days to Meet Goals 3 Frequency of Treatment Frequency Of Treatment Twice a Day Treatment Plan Physical Therapy Treatment Plan Bed Mobility Training,Transfer Training,Gait Training, Therapeutic Exercise,Balance Retraining,Post Op Education, Discharge Planning,Hot or Cold Pack,Neuromuscular Re-ed Other Recommendations and Next Treatment Caregiver training Focus Stair mgmt Gait further distance Review post op precautions Recommendations To Nursing Amount of Assist Needed 1 Person Assist Discharge Recommendations PT Discharge Recommendations Home with Assistance Transportation Needs at Discharge Private Vehicle
[2020-05-02] MEDS: PRAVASTATIN 20 MG TABLET PO (17:09)
[2020-05-02] MEDS: diphenhydrAMINE 25 MG TABLET PO (17:43)
[2020-05-02 19:28] VITALS: BP 110/65; PULSE 85; RESP 17; TEMP 37.1; O2SAT 95
[2020-05-02] MEDS: MELATONIN 3 MG TABLET 9 MG PO (20:39)
[2020-05-02] MEDS: SENNOSIDES 8.6 MG TABLET 17.2 MG PO (20:39)
[2020-05-02] MEDS: GABAPENTIN 300 MG CAPSULE PO (20:39)
[2020-05-02] MEDS: atenoloL 50 MG TABLET 100 MG PO (20:48)
[2020-05-02] MEDS: HYDROMORPHONE 0.5 MG INJ 0.2 MG IV (20:57)
[2020-05-02] MEDS: LORazepam 1 MG TABLET PO (20:57)
[2020-05-03] VITALS (7 sets, daily range): BP systolic 97–124; BP diastolic 57–75; PULSE 66–80; RESP 16–20; TEMP 36.6–37.1; O2SAT 92–95
[2020-05-03] MEDS: hydrOXYzine pamoate 25 MG CAPSULE PO ×3 (02:06→21:54)
--- NOTE | 2020-05-03 02:30 | PC.NURSE ---
Patient asleep first few hours of shift. Now awake and complaining of 8/10 back and bilateral LE aching pain so was medicated with IV Dilaudid but pain only decreased to 7/10 so administered a second dose of IV Dilaudid. Is alert and oriented. Breath sounds CTA with RA sat of 98% (started shift on oxygen at 2L/min but have been able to wean off). HRR. Denies nausea. BT present but denies flatus and has not had a BM since 04/29. Was incontinent of urine earlier but has also used urinal; denies dysuria, frequency or urgency. Is able to move himself in bed. Bilateral LE are splinted so SCD's are not being used. Having pain in bilateral LE and is unable to feel touch on right foot. Pedal pulses palpable bilaterally and has good capillary refill. Fall risk score is high and bed alarm is activated.
--- NOTE | 2020-05-03 02:38 | PC.NURSE ---
Addendum entered by Radha Cornelius R.N. 05/03/20 05:47: States pain is currently 8/10 so medicated with Vicodin. Original Note: patient is alert and oriented. Breath sounds diminished at bases but CTA with RA sat of 93%. HRR. Denies nausea. BT present and is passing flatus. Reports no dysuria, frequency or urgency after having catheter removed yesterday. Moving self in bed. Has been getting up with walker and 1 assist. Dressing to back is CDI. States pain is tolerable but rates as 8/10 so medicated with Vistaril and ice applied and will give Vicodin when next due around 0300. Refusing foot SCD's so reminded to ankle wave when awake. Fall risk score is high and bed alarm is activated.
[2020-05-03] MEDS: HYDROCODONE/ACET 5/325 TABLET 2 TAB PO (05:43)
--- NOTE | 2020-05-03 07:25 | P.PN_ITS ---
Subjective Subjective Date Patient Seen: 05/03/20 Time Patient Seen: 07:26 Interval history: She had a rough day yesterday and more for rough night. Still requiring assistance getting in and out of bed. Pain is about a 7 8/10. Required IV Dilaudid overnight. Exam Vital Signs (past 8 hours): - 05/03/20 02:00 05/03/20 05:59 Temperature 98.8 F 97.9 F Pulse Rate 71 67 Respiratory Rate 16 16 Blood Pressure 103/60 97/57 L Pulse Oximetry 93 94 Oxygen Delivery Method Room Air Oxygen Flow Rate 0 Const Orientation: alert and oriented x3 Back/Spine/Pelvis Other: CDI. 5/5 motor both lower extremities. Objective Labs Result Diagrams: 05/02/20 06:00 [facility] Medical History (Updated 04/30/20 @ 11:43 by Luisana Alicea RN) Anxiety Chronic back pain Depression DMII (diabetes mellitus, type 2) Former smoker Hyperlipidemia Hypertension Lumbar stenosis with neurogenic claudication Obstructive sleep apnea Prediabetes Spondylolisthesis, lumbar region Surgical History (Updated 04/30/20 @ 11:28 by Luisana Alicea RN) History of hysterectomy (~1999) History of tonsillectomy (~1955) S/P foot surgery, left (~2015) Social History household members: spouse Smoking Status: Former smoker alcohol intake: current Assessment & Plan Post-op Postoperative Procedures: Procedures Operation Date: 05/01/20 09:45 Actual Procedures Side Surgeon p L34 & L45 laminectomies & instrumented fusion (TLIF) w. bone graft Marek Srinivasan MD Her epidural wore off yesterday and her pain levels have Significantly increased since. She is having difficulty with pain control and mobility. I am going to change her over to oxycodone to see if that helps. Continue with mobilization with physical therapy. I anticipate her probably staying 1 more night. We will recheck later this afternoon to see if she is doing better.
[2020-05-03] MEDS: CELECOXIB 200 MG CAPSULE PO ×2 (09:46→21:23)
[2020-05-03] MEDS: ASPIRIN 81 MG CHEW TAB PO (09:46)
[2020-05-03] MEDS: AMLODIPINE 5 MG TABLET PO (09:46)
[2020-05-03] MEDS: SODIUM CHLORIDE 0.9% FLUSH 10 ML IV ×2 (09:47→21:24)
[2020-05-03] MEDS: lisinopriL 20 MG TABLET 40 MG PO (09:47)
[2020-05-03] MEDS: OXYCODONE IR 10 MG TABLET PO ×4 (09:47→21:24)
[2020-05-03] MEDS: VITAMIN B COMPLEX 1 CAPSULE 1 CAP PO (09:47)
[2020-05-03] MEDS: DOCUSATE 100 MG CAPSULE PO ×2 (09:47→21:23)
[2020-05-03] MEDS: MULTIVITAMIN 1 TABLET 1 TAB PO (09:47)
[2020-05-03] MEDS: CHOLECALCIFEROL (VITAMIN D3) 5,000 UNIT TABLET 5000 UNIT PO (10:42)
--- NOTE | 2020-05-03 11:26 | PC.NURSE ---
Patient up to chair with SBA and FWW, A/O x4. Back dsg has scant shadow drainage on posterior aspect, intact. Patient denies numbness or tingling in extremities. Pulses palpable, equal bilaterally. Strength equal bilaterally. Patient voiding. Patient denies nausea. Reports pain 6/10. Oxy 10 mg administered. Patient reported feeling slightly lightheaded during ambulation with PT, BP WNL. Patient denies further needs, call light in reach.
--- NOTE | 2020-05-03 11:34 | PT.IPTN ---
Current Diagnoses Major depressive disorder, single episode, unspecified (05/01/20) Anxiety disorder, unspecified (05/01/20) Obstructive sleep apnea (adult) (pediatric) (05/01/20) Spondylolisthesis, lumbar region (05/01/20) Spinal stenosis, lumbar region with neurogenic claudication (05/01/20) Personal history of nicotine dependence (05/01/20) Other specified postprocedural states (05/01/20) Surgery Performed Operation Date: 05/01/20 09:45 Actual Procedures p L34 & L45 laminectomies & instrumented fusion (TLIF) w. bone graft - Marek Srinivasan MD Physical Therapy Treatment Note M2 PT-IP Current Condition Start: 05/02/20 08:20 Freq: NEEDED Status: Active Protocol: Document 05/02/20 09:45 HH (Rec: 05/02/20 12:11 HH [id number]) Physical Therapy Current Condition Current Condition Evaluation Date 05/02/20 Treatment Diagnosis L3-5 laminectomies and TLIF, difficulty for walking Onset Date 05/01/20 Precautions Lumbar Precautions Log Roll,No Twisting,Limit Bending,Lifting Restriction of 10 lbs,Gait Belt above Incisional Area Weight Bearing Status Weight Bearing Status Weight Bear as Tolerated M3 PT-IP Subjective Start: 05/02/20 08:20 Freq: NEEDED Status: Active Protocol: Document 05/03/20 10:55 CLB (Rec: 05/03/20 13:13 CLB [id number]) Subjective Physical Therapy Visit Type Type Treatment Note Visit Start Time 10:55 Visit Stop Time 11:34 Total Visit Minutes 39 Notes Pt present for CG training. CG training continued tomorrow at 10:00. Physical Therapy Visit Comments Patient Comments Pt agreeable to mobilize with PT. Therapy Pain Assessment Pain When Pain Assessed During Mobility Pain Present Pain Present Pain Reported Location back Intensity 7 Scale Used Numeric (0 - 10) Pain Management Techniques Modification of Treatment, Timing of Activity with Medications M4 PT-IP Mobility and Gait Start: 05/02/20 08:20 Freq: NEEDED Status: Active Protocol: Document 05/03/20 10:55 CLB (Rec: 05/03/20 13:13 CLB [id number]) PT-Bed Mobility Assessment Rolling Type of Rolling Log Rolling,Roll to Right Level of Assist Contact Guard Assistance Supine to Sit Supine to Sit Contact Guard Assistance Scooting Scooting to Edge of Bed Standby Assistance PT-Transfer Assessment Sit to and From Stand Sit to and from Stand Standby Assistance,1 Person Assistance,Use of Upper Extremities Equipment Transfer Assistive Device Gait Belt,Front Wheeled Walker Orthotic/Prosthetic Devices or Brace: No Transfers Transfer Destination Bed,Chair Transfer Technique Stand Step Pivot Transfer Ability Level of Assist Standby Assistance,Use of Upper Extremities Comments Mobility Comments Pt in chair upon arrival. Pt stood SBA and ambulated in nuñez ~230ft w/FWW/SBA. Pt w/ pain 09/29 and did not feel she could climb stairs. Pt then returned to room and sat on bed. Pt performed reverse LR into bed with assisting pt with LE's on to bed and guided pt CGA to LR onto back. Pt then rolled back to right SBA and required CBA sidelying to sit. Pt then stood SBA. Pt used BR requiring SBA with use of wall rail for sit<>stand and SBA for standing balance at sink while washing hands. Pt then requested to get back into bed and provided Min A for LE's onto bed while pt performed reverse LR . Left pt in bed with all needs within reach and SCD's on. Gait Assessment Gait Gait Assistance Required: Standby Assistance Distance (Feet) 230 Able to Maintain Weight Bearing Status Yes During Gait Assistive Devices Assistive Device Gait Belt,Front Wheeled Walker Orthotic/Prosthetic Devices or Brace: No Gait Deviations General Gait Pattern Decreased Stride Length, Decreased Feet Clearance Factors Limiting Gait Function Factors Limiting Gait Function Decreased Activity Tolerance, Decreased Strength,Limited Range of Motion,Pain,Poor Balance Stair Climbing Assessment Comments Stair Climbing Comments Pt refused stair climbing due to pain 09/29 PT-Balance Assessment Sitting Balance and Reactions Static Sitting Balance Ability Normal Dynamic Sitting Balance Ability Good Standing Balance and Reactions Static Standing Balance Ability Fair Dynamic Standing Balance Ability Good Device Used FWW M5 PT-IP Objective Assessments Start: 05/02/20 08:20 Freq: NEEDED Status: Active Protocol: Document 05/02/20 14:38 LD (Rec: 05/02/20 16:19 LD [id number]) Orientation Orientation/Cognition Level of Alertness Alert Orientation Name,Age,Birthday,Month,Date, Year,Day of Week,Place, Situation Language Function Ability No Deficits Noted Safety Awareness Understands Safety Issues Memory Description No Deficits Noted M6 PT-IP Treatment Start: 05/02/20 08:20 Freq: NEEDED Status: Active Protocol: Document 05/02/20 14:38 LD (Rec: 05/02/20 16:19 LD [id number]) Physical Therapy Treatment Education Education Provided Precautions,Weight Bearing Status,Post-Op Packet,Safety M7 PT-IP Assessment and Plan Start: 05/02/20 08:20 Freq: NEEDED Status: Active Protocol: Document 05/03/20 10:55 CLB (Rec: 05/03/20 13:13 CLB [id number]) PT Summary Assessment and Plan Potential Rehabilitation Potential Excellent Status of Condition at Evaluation Stable Summary Impairments Pain,ROM,Strength,Balance, Sensation,Cognition,Bed Mobility,Transfers,Gait, Activity Tolerance Progress Towards Goals Progressing Toward Goals Assessment Summary Pt is SBA for all mobility with Min A of LE's onto bed during sit-sidelying. Pt ambulated ~230ft w/FWW/SBA. Pt will return tomorrow moring for further CG training . Goals Bed Mobility Goal Independent Transfer Goal Independent,Front Wheeled Walker Gait Goal Independent,Front Wheel Walker Gait Distance 300 Other Goals 2 MARVIN without railings. Days to Meet Goals 3 Frequency of Treatment Frequency Of Treatment Twice a Day Treatment Plan Physical Therapy Treatment Plan Bed Mobility Training,Transfer Training,Gait Training, Therapeutic Exercise,Balance Retraining,Post Op Education, Discharge Planning,Hot or Cold Pack,Neuromuscular Re-ed Other Recommendations and Next Treatment Caregiver training Focus Stair mgmt w/cane and FLIGHT SURVEYOR. Recommendations To Nursing Amount of Assist Needed 1 Person Assist Discharge Recommendations PT Discharge Recommendations Home with Assistance Transportation Needs at Discharge Private Vehicle
--- NOTE | 2020-05-03 13:34 | OT.IP.TRT ---
Current Diagnoses Major depressive disorder, single episode, unspecified (05/01/20) Anxiety disorder, unspecified (05/01/20) Obstructive sleep apnea (adult) (pediatric) (05/01/20) Spondylolisthesis, lumbar region (05/01/20) Spinal stenosis, lumbar region with neurogenic claudication (05/01/20) Personal history of nicotine dependence (05/01/20) Other specified postprocedural states (05/01/20) Surgery Performed Operation Date: 05/01/20 09:45 Actual Procedures p L34 & L45 laminectomies & instrumented fusion (TLIF) w. bone graft - Marek Srinivasan MD Occupational Therapy Treatment Note M2 OT-IP Current Condition Start: 05/02/20 13:04 Freq: Status: Active Protocol: Document 05/02/20 10:24 [facility] (Rec: 05/02/20 13:20 [facility] [id number]) Occupational Therapy Current Condition Current Condition Evaluation Date 05/02/20 Treatment Diagnosis S/p L3-4, L4-5 TLIF Diagnosis Onset Date 05/01/20 Post Operative Precautions Lumbar Precautions Log Roll,No Twisting,Limit Bending,Lifting Restriction of 10 lbs,Gait Belt above Incisional Area M3 OT- IP Subjective and Pain Start: 05/02/20 13:04 Freq: Status: Active Protocol: Document 05/03/20 15:35 [facility] (Rec: 05/03/20 15:43 [facility] [id number]) OT- Subjective Occupational Therapy Visit Type Type Treatment Note Visit Start Time 10:40 Visit Stop Time 13:34 Total Visit Minutes 40 Notes Pt seen for split treatment [id number] to talk to for caregiver training and shower for pt from [id number]. Occupational Therapy Visit Comments Patient Comments Pt wanting to shower. Patient/Caregiver Goals To go home. OT Pain Assessment Pain When Pain Assessed During Mobility Pain Present Pain Present Pain Reported Location back Intensity 8 Scale Used Numeric (0 - 10) M4 OT- IP ADL's Start: 05/02/20 13:04 Freq: Status: Active Protocol: Document 05/03/20 15:35 [facility] (Rec: 05/03/20 15:43 [facility] [id number]) OT ADL-Dressing General Eval Lower Body Dressing Ability Moderate Assistance Areas Needing Assistance Socks Comments OT Dressing Comments Pt able to reach to liliya her underwear and needing assist to liliya her socks. Pt states to have assist for LB dressing needs and not needing to have a foam rubber fabricator at this time. OT ADL-Bathing Bathing Type Bathing Type Shower General Evaluation Bathing Ability Moderate Assistance Areas Needing Assistance Wash/Dry Back,Wash/Dry Lower Extremities Comments OT Bathing Comments Pt states agrees would be best to get a shower chair for home use at built in seat in the shower would be too small and low. Pt needing assist to wash/dry her back and feet. M5 OT- IP IADL's Start: 05/02/20 13:04 Freq: Status: Active Protocol: Document 05/02/20 10:24 [facility] (Rec: 05/02/20 13:20 [facility] [id number]) OT-Instrumental Activities of Daily Living Home Safety Awareness Awareness of Need for Assistance at Home Good Awareness Ability to Problem Solve Emergency Able to Problem Solve Situations Medication Management Medication Management Comments Pt states her will assist her if needed. Money Management Money Management Comments Pt states her will assist her if needed. Meal Preparation Meal Preparation Caregiver Provides Assist Time Signal Wirer Time Signal Wirer Caregiver Provides Assist M6 OT- IP Functional Cognition Start: 05/02/20 13:04 Freq: Status: Active Protocol: Document 05/03/20 15:35 [facility] (Rec: 05/03/20 15:43 [facility] [id number]) Cognitive Factors Limiting Selfcare Function Cognitive Comments Cognitive Assessment Comments Pt doing better following back precautions today for showering needs. Pt still tend to want to twist while readjusting herself in bed. M7 OT- IP Mobility and Balance Start: 05/02/20 13:04 Freq: Status: Active Protocol: Document 05/03/20 15:35 [facility] (Rec: 05/03/20 15:43 [facility] [id number]) OT-Transfer Assessment Sit to and From Stand Sit to and from Stand Contact Guard Assistance Transfers Transfer Ability Contact Guard Assistance Technique Transfer Destination Bed,Chair,Shower Stall Devices Transfer Assistive Devices Gait Belt,Front Wheeled Walker OT- Balance Assessment Sitting Balance and Reactions Static Sitting Balance Ability Normal Dynamic Sitting Balance Ability Good Standing Balance and Reactions Static Standing Balance Ability Fair M8 OT- IP Objective Assessments Start: 05/02/20 13:04 Freq: Status: Active Protocol: Document 05/02/20 10:24 [facility] (Rec: 05/02/20 13:20 [facility] [id number]) OT-Muscle Tone Assessment Muscle Tone WNL Yes M9 OT- IP Assessment and Plan Start: 05/02/20 13:04 Freq: Status: Active Protocol: Document 05/03/20 15:35 [facility] (Rec: 05/03/20 15:43 [facility] [id number]) OT Summary Assessment and Plan Potential Rehabilitation Potential Good Analytic Complexity at Evaluation Low Summary OT Impairments Pain,Balance,Functional Cognition,Functional Mobility, Grooming,Dressing,Toileting, Bathing,Toilet Transfers, Shower Transfers,Activity Tolerance Progress Towards Goals Progressing Toward Goals Assessment Summary Pt doing well and able to tolerate shower today and dressing needs. Pt's states good understanding to be able to assist his . Pt looking to go home tomorrow. Goals Grooming Goal Independent Dressing Goal Independent Toileting Goal Independent Bathing Goal Independent Toilet Transfer Goal Independent Shower Transfer Goal Independent Patient/Caregiver Education Goal Demonstrate Post-Op Precautions,Caregiver Independent Assisting Patient Days to Meet Goals 5 Frequency of Treatment Frequency Of Treatment Once a Day Treatment Plan OT Treatment Plan ADL Training,Functional Cognition Training,Functional Mobility,Patient/Family Education,Discharge Planning Discharge Recommendations OT Discharge Recommendations Home with Assistance Home Equipment Needs shower chair, FWW
--- NOTE | 2020-05-03 14:46 | PT.IPTN ---
Current Diagnoses Major depressive disorder, single episode, unspecified (05/01/20) Anxiety disorder, unspecified (05/01/20) Obstructive sleep apnea (adult) (pediatric) (05/01/20) Spondylolisthesis, lumbar region (05/01/20) Spinal stenosis, lumbar region with neurogenic claudication (05/01/20) Personal history of nicotine dependence (05/01/20) Other specified postprocedural states (05/01/20) Surgery Performed Operation Date: 05/01/20 09:45 Actual Procedures p L34 & L45 laminectomies & instrumented fusion (TLIF) w. bone graft - Marek Srinivasan MD Physical Therapy Treatment Note M2 PT-IP Current Condition Start: 05/02/20 08:20 Freq: NEEDED Status: Active Protocol: Document 05/02/20 09:45 HH (Rec: 05/02/20 12:11 [id number]) Physical Therapy Current Condition Current Condition Evaluation Date 05/02/20 Treatment Diagnosis L3-5 laminectomies and TLIF, difficulty for walking Onset Date 05/01/20 Precautions Lumbar Precautions Log Roll,No Twisting,Limit Bending,Lifting Restriction of 10 lbs,Gait Belt above Incisional Area Weight Bearing Status Weight Bearing Status Weight Bear as Tolerated M3 PT-IP Subjective Start: 05/02/20 08:20 Freq: NEEDED Status: Active Protocol: Document 05/03/20 14:25 CLB (Rec: 05/03/20 15:10 CLB [id number]) Subjective Physical Therapy Visit Type Type Treatment Note Visit Start Time 14:25 Visit Stop Time 14:46 Total Visit Minutes 21 Number of CRUSHER SUPERVISOR Visits 3 Physical Therapy Visit Comments Patient Comments Pt agreeable to mobilize with PT. Therapy Pain Assessment Pain When Pain Assessed During Mobility Pain Present Pain Present Pain Reported Location back Intensity 7 Scale Used Numeric (0 - 10) Pain Management Techniques Apply Cold,Modification of Treatment,Timing of Activity with Medications M4 PT-IP Mobility and Gait Start: 05/02/20 08:20 Freq: NEEDED Status: Active Protocol: Document 05/03/20 14:25 CLB (Rec: 05/03/20 15:10 CLB [id number]) PT-Bed Mobility Assessment Rolling Type of Rolling Log Rolling,Roll to Right Level of Assist Standby Assistance Supine to Sit Supine to Sit Standby Assistance Sit to Supine Sit to Supine Contact Guard Assistance Scooting Scooting to Edge of Bed Standby Assistance PT-Transfer Assessment Sit to and From Stand Sit to and from Stand Standby Assistance,1 Person Assistance,Use of Upper Extremities Equipment Transfer Assistive Device Gait Belt,Front Wheeled Walker Orthotic/Prosthetic Devices or Brace: No Transfers Transfer Destination Bed,Toilet Transfer Technique Stand Step Pivot Transfer Ability Level of Assist Standby Assistance,Use of Upper Extremities Comments Mobility Comments Pt in bed agreeable to ambulate. Pt is SBA for LR, sidelying to sit. Pt stood SBA and ambulated SBA into BR, pt able to doff/liliya brief and perform pericare. Pt stood SBA to wash hands at counter, pt ambulated in nuñez ~230ft w/FWW /SBA. Pt returned to bed requiring Min A of LE's onto bed. Pt left in bed with all needs within reach, alarm on and ice on LB. Gait Assessment Gait Gait Assistance Required: Standby Assistance Distance (Feet) 230 Able to Maintain Weight Bearing Status Yes During Gait Assistive Devices Assistive Device Gait Belt,Front Wheeled Walker Orthotic/Prosthetic Devices or Brace: No Gait Deviations General Gait Pattern Decreased Stride Length, Decreased Feet Clearance Factors Limiting Gait Function Factors Limiting Gait Function Decreased Activity Tolerance, Decreased Strength,Limited Range of Motion,Pain,Poor Balance M5 PT-IP Objective Assessments Start: 05/02/20 08:20 Freq: NEEDED Status: Active Protocol: Document 05/02/20 14:38 LD (Rec: 05/02/20 16:19 LD [id number]) Orientation Orientation/Cognition Level of Alertness Alert Orientation Name,Age,Birthday,Month,Date, Year,Day of Week,Place, Situation Language Function Ability No Deficits Noted Safety Awareness Understands Safety Issues Memory Description No Deficits Noted M6 PT-IP Treatment Start: 05/02/20 08:20 Freq: NEEDED Status: Active Protocol: Document 05/02/20 14:38 LD (Rec: 05/02/20 16:19 LD [id number]) Physical Therapy Treatment Education Education Provided Precautions,Weight Bearing Status,Post-Op Packet,Safety M7 PT-IP Assessment and Plan Start: 05/02/20 08:20 Freq: NEEDED Status: Active Protocol: Document 05/03/20 14:25 CLB (Rec: 05/03/20 15:10 CLB [id number]) PT Summary Assessment and Plan Potential Rehabilitation Potential Excellent Status of Condition at Evaluation Stable Summary Impairments Pain,ROM,Strength,Balance, Sensation,Cognition,Bed Mobility,Transfers,Gait, Activity Tolerance Progress Towards Goals Progressing Toward Goals Assessment Summary Pt is SBA for all mobility with Min A of LE's onto bed during sit-sidelying. Pt ambulated ~230ft w/FWW/SBA. Pt c/o feeling small jolts of electricity in low back. CG training for stair training tomorrow 10:00. Goals Bed Mobility Goal Independent Transfer Goal Independent,Front Wheeled Walker Gait Goal Independent,Front Wheel Walker Gait Distance 300 Other Goals 2 MARVIN without railings. Days to Meet Goals 3 Frequency of Treatment Frequency Of Treatment Twice a Day Treatment Plan Physical Therapy Treatment Plan Bed Mobility Training,Transfer Training,Gait Training, Therapeutic Exercise,Balance Retraining,Post Op Education, Discharge Planning,Hot or Cold Pack,Neuromuscular Re-ed Other Recommendations and Next Treatment Caregiver training Focus Stair mgmt w/cane and ELECTRIC CUTTER OPERATOR. Recommendations To Nursing Amount of Assist Needed 1 Person Assist Discharge Recommendations PT Discharge Recommendations Home with Assistance Transportation Needs at Discharge Private Vehicle
[2020-05-03] MEDS: HYDROMORPHONE 0.5 MG INJ 0.2 MG IV (16:24)
[2020-05-03] MEDS: ACETAMINOPHEN 325 MG TABLET 650 MG PO (17:03)
[2020-05-03] MEDS: PRAVASTATIN 20 MG TABLET PO (17:03)
[2020-05-03] MEDS: GABAPENTIN 300 MG CAPSULE PO (21:23)
[2020-05-03] MEDS: SENNOSIDES 8.6 MG TABLET 17.2 MG PO (21:24)
[2020-05-03] MEDS: MELATONIN 3 MG TABLET 9 MG PO (21:24)
[2020-05-03] MEDS: atenoloL 50 MG TABLET 100 MG PO (21:53)
[2020-05-04] VITALS: BP 117/64; PULSE 66; RESP 16; TEMP 36.6; O2SAT 92
[2020-05-04] MEDS: OXYCODONE IR 10 MG TABLET PO ×2 (03:28→09:46)
[2020-05-04 04:57] VITALS: BP 98/59; PULSE 68; RESP 16; TEMP 36.8; O2SAT 92
--- NOTE | 2020-05-04 08:00 | P.PN_ITS ---
Subjective Subjective Date Patient Seen: 05/04/20 Time Patient Seen: 08:00 Interval history: She is doing better today. More mobile getting up out of bed. Pain is under much better control and she slept well. Exam Vital Signs (past 8 hours): - 05/04/20 04:57 Temperature 98.3 F Pulse Rate 68 Respiratory Rate 16 Blood Pressure 98/59 L Pulse Oximetry 92 Oxygen Delivery Method Room Air Oxygen Flow Rate 0 Const Orientation: alert and oriented x3 Back/Spine/Pelvis Other: CDI. 5/5 motor both lower extremities. Objective Labs Result Diagrams: 05/02/20 06:00 [facility] Medical History (Updated 04/30/20 @ 11:43 by Luisana Alicea RN) Anxiety Chronic back pain Depression DMII (diabetes mellitus, type 2) Former smoker Hyperlipidemia Hypertension Lumbar stenosis with neurogenic claudication Obstructive sleep apnea Prediabetes Spondylolisthesis, lumbar region Surgical History (Updated 04/30/20 @ 11:28 by Luisana Alicea RN) History of hysterectomy (~1999) History of tonsillectomy (~1956) S/P foot surgery, left (~2015) Social History household members: spouse Smoking Status: Former smoker alcohol intake: current Assessment & Plan Post-op Postoperative Procedures: Procedures Operation Date: 05/01/20 09:45 Actual Procedures Side Surgeon p L34 & L45 laminectomies & instrumented fusion (TLIF) w. bone graft Marek Srinivasan MD She is doing much better. Plan to discharge home today.
--- NOTE | 2020-05-04 08:00 | PM.DS.1 ---
History of Present Illness History of Present Illness Date Patient Seen: 05/04/20 Time Patient Seen: 08:00 Chief complaint: *OPB* Narrative: 69-year-old female with pain in the back and bilateral leg weakness. She has been through physical therapy and epidural steroid injections without relief. Discharge Providers Provider Date of admission: 05/01/20 08:23 Discharge Date: 05/04/20 Primary care physician: Emma Jim MD Consults: 04/30/20 11:55 Consult to Respiratory Therapy Evaluate & Treat Comment: ADALGISA - doesn't tolerate CPAP Physician Instructions: Evaluate and treat 05/01/20 14:43 Consult to Occupational Therapy Evaluate & Treat Comment: Physician Instructions: Evaluate and treat Consult to Physical Therapy Evaluate & Treat Comment: Physician Instructions: Evaluate and Treat Discharge provider: Marek Srinivasan MD Summary Hospital Course Discharge Diagnosis: Lumbar stenosis with radiculopathy Lumbar spondylolisthesis Hospital Course: She is brought to the operating room on 05/01/2020 where she underwent a L3-4 and L4-5 laminectomy and instrumented fusion TLIF. Postoperatively she did well and slowly progress with physical therapy. Her pain gradually was getting better and she switched over from IV to orals. But the date of discharge she had good oral pain relief. Status at Discharge Cognitive/behavioral status at discharge: oriented Functional status at discharge: uses cane/walker Overall status at discharge: patient is progressing back to baseline Exam Vital Signs (past 8 hours): - 05/04/20 04:57 Temperature 98.3 F Pulse Rate 68 Respiratory Rate 16 Blood Pressure 98/59 L Pulse Oximetry 92 Oxygen Delivery Method Room Air Oxygen Flow Rate 0 Const Orientation: alert and oriented x3 Back/Spine/Pelvis Other: CDI. 5/5 motor both lower extremities. Objective Labs Result Diagrams: 05/02/20 06:00 [facility] Medical History (Updated 04/30/20 @ 11:43 by Luisana Alicea RN) Anxiety Chronic back pain Depression DMII (diabetes mellitus, type 2) Former smoker Hyperlipidemia Hypertension Lumbar stenosis with neurogenic claudication Obstructive sleep apnea Prediabetes Spondylolisthesis, lumbar region Surgical History (Updated 04/30/20 @ 11:28 by Luisana Alicea RN) History of hysterectomy (~2000) History of tonsillectomy (~1956) S/P foot surgery, left (~2015) Social History household members: spouse Smoking Status: Former smoker alcohol intake: current Discharge Assessment & Plan Assessment and Plan Assessment: Status post laminectomy and fusion Plan of Treatment: Discharge home Discharge Plan Discharge Plan Patient Disposition: Home Provider Discharge Comment: Follow-up 05/16/[address] Srinivasan in [place] Discharge orders & Medications Prescriptions: New celecoxib [Celebrex] 200 mg Capsule 200 mg PO BID PRN (Reason: pain) Qty: 30 RF: 0 docusate sodium [DOK] 100 mg Capsule 100 mg PO BID PRN (Reason: constipation) Qty: 30 RF: 0 oxycodone 5 mg Tablet See Rx Instructions .ROUTE .COMPLEX PRN (Reason: Pain, Moderate (4-6)) Qty: 40 RF: 0 hydroxyzine pamoate 25 mg Capsule 25 mg PO Q4HR PRN (Reason: spasms) Qty: 20 RF: 0 Continued lorazepam 1 mg Tablet 1 - 2 mg PO BID PRN (Reason: Anxiety) RF: 0 tretinoin [Retin-A] 0.025 % Cream 1 applic TOPICAL BEDTIME RF: 0 amlodipine 5 mg Tablet 5 mg PO DAILY RF: 0 pravastatin 20 mg Tablet 20 mg PO QPM RF: 0 lisinopril 40 mg Tablet 40 mg PO DAILY RF: 0 atenolol 50 mg Tablet 100 mg PO DAILY RF: 0 vitamin B complex Capsule 1 cap PO DAILY RF: 0 melatonin 5 mg Tablet 10 mg PO BEDTIME PRN (Reason: Sleep) RF: 0 cholecalciferol (vitamin D3) [Vitamin D3] 125 mcg (5,000 unit) Tablet 125 mcg PO DAILY RF: 0 vit A-vit C-vit H-vfha-oggiab 7,160-113-100 zdvx-[id number] Tablet 2 tab PO DAILY RF: 0 aspirin 81 mg Tablet,Chewable 81 mg PO DAILY RF: 0 Discontinued hydrocodone-acetaminophen 5-325 mg Tablet 0.5 - 1 tab PO BID PRN (Reason: Pain) RF: 0 Follow up/Referrals: Emma Jim MD [Primary Care Provider] - Discharge Data Primary Care Provider: Emma Jim
[2020-05-04 08:09] VITALS: BP 111/74; PULSE 69; RESP 18; TEMP 36.3; O2SAT 96
--- NOTE | 2020-05-04 08:31 | OT.IP.TRT ---
Current Diagnoses Major depressive disorder, single episode, unspecified (05/01/20) Anxiety disorder, unspecified (05/01/20) Obstructive sleep apnea (adult) (pediatric) (05/01/20) Spondylolisthesis, lumbar region (05/01/20) Spinal stenosis, lumbar region with neurogenic claudication (05/01/20) Personal history of nicotine dependence (05/01/20) Other specified postprocedural states (05/01/20) Surgery Performed Operation Date: 05/01/20 09:45 Actual Procedures p L34 & L45 laminectomies & instrumented fusion (TLIF) w. bone graft - Marek Srinivasan MD Occupational Therapy Treatment Note M2 OT-IP Current Condition Start: 05/02/20 13:04 Freq: Status: Active Protocol: Document 05/02/20 10:24 [facility] (Rec: 05/02/20 13:20 [facility] [id number]) Occupational Therapy Current Condition Current Condition Evaluation Date 05/02/20 Treatment Diagnosis S/p L3-4, L4-5 TLIF Diagnosis Onset Date 05/01/20 Post Operative Precautions Lumbar Precautions Log Roll,No Twisting,Limit Bending,Lifting Restriction of 10 lbs,Gait Belt above Incisional Area M3 OT- IP Subjective and Pain Start: 05/02/20 13:04 Freq: Status: Active Protocol: Document 05/04/20 09:48 [facility] (Rec: 05/04/20 09:52 [facility] [id number]) OT- Subjective Occupational Therapy Visit Type Type Treatment Note Visit Start Time 08:15 Visit Stop Time 08:31 Total Visit Minutes 16 Occupational Therapy Visit Comments Patient Comments Pt not wanting to get up at this time, but having questions regarding her needs from back surgery. Patient/Caregiver Goals TO go home. OT Pain Assessment Pain When Pain Assessed At Rest Pain Present Pain Present Pain Reported Location back Intensity 6 Scale Used Numeric (0 - 10) M6 OT- IP Functional Cognition Start: 05/02/20 13:04 Freq: Status: Active Protocol: Document 05/04/20 09:48 [facility] (Rec: 05/04/20 09:52 [facility] [id number]) Cognitive Factors Limiting Selfcare Function Cognitive Ability Level of Alertness Alert Patient Orientation Name,Place,Situation Attention Span Ability Capable of Focused Attention, Capable of Sustained Attention Ability to Follow Commands Able to Follow One Step Commands Safety Awareness Decreased Ability to Apply Precautions,Underestimates Need for Assistance Cognitive Comments Cognitive Assessment Comments Re-emphasized to pt to follow her back precautions especially while in the bed and she tends to twist when repositioning. Encouraged pt to write down questions and concerns for the surgeon for her follow up appointment as pt wondering when the pain will subside or when she can get back to gardening. M7 OT- IP Mobility and Balance Start: 05/02/20 13:04 Freq: Status: Active Protocol: Document 05/03/20 15:35 [facility] (Rec: 05/03/20 15:43 [facility] [id number]) OT-Transfer Assessment Sit to and From Stand Sit to and from Stand Contact Guard Assistance Transfers Transfer Ability Contact Guard Assistance Technique Transfer Destination Bed,Chair,Shower Stall Devices Transfer Assistive Devices Gait Belt,Front Wheeled Walker OT- Balance Assessment Sitting Balance and Reactions Static Sitting Balance Ability Normal Dynamic Sitting Balance Ability Good Standing Balance and Reactions Static Standing Balance Ability Fair M8 OT- IP Objective Assessments Start: 05/02/20 13:04 Freq: Status: Active Protocol: Document 05/02/20 10:24 [facility] (Rec: 05/02/20 13:20 [facility] [id number]) OT-Muscle Tone Assessment Muscle Tone WNL Yes M9 OT- IP Assessment and Plan Start: 05/02/20 13:04 Freq: Status: Active Protocol: Document 05/04/20 09:48 [facility] (Rec: 05/04/20 09:52 [facility] [id number]) OT Summary Assessment and Plan Potential Rehabilitation Potential Good Analytic Complexity at Evaluation Low Summary Assessment Summary Pt to go home today and has a supportive to assist with her needs. Discharge Recommendations OT Discharge Recommendations Home with Assistance Home Equipment Needs shower chair, FWW
[2020-05-04 09:40] VITALS: BP 108/60; PULSE 71
[2020-05-04 09:47] VITALS: BP 108/60; PULSE 71
[2020-05-04] MEDS: DOCUSATE 100 MG CAPSULE PO (09:47)
[2020-05-04] MEDS: ASPIRIN 81 MG CHEW TAB PO (09:47)
[2020-05-04] MEDS: lisinopriL 20 MG TABLET 40 MG PO (09:47)
[2020-05-04] MEDS: MULTIVITAMIN 1 TABLET 1 TAB PO (09:47)
[2020-05-04] MEDS: VITAMIN B COMPLEX 1 CAPSULE 1 CAP PO (09:48)
[2020-05-04] MEDS: CELECOXIB 200 MG CAPSULE PO (09:48)
[2020-05-04] MEDS: AMLODIPINE 5 MG TABLET PO (09:48)
[2020-05-04] MEDS: CHOLECALCIFEROL (VITAMIN D3) 5,000 UNIT TABLET 5000 UNIT PO (09:48)
[2020-05-04] MEDS: SODIUM CHLORIDE 0.9% FLUSH 10 ML IV (09:53)
--- NOTE | 2020-05-04 10:12 | PC.NURSE ---
Addendum entered by Claudia Khan R.N. 05/04/20 11:22: Spouse bedside during PT session. Spouse and patient given discharge instructions. Patient verbalized understanding regarding follow up appointment, PT, medications and wound care. IV removed. Patient discharged via wheelchair accompanied by aide and spouse. Original Note: Patient up to chair with SBA and FWW this AM. Tolerating ambulation. Discussed plan for the day. Patient reports pain is managed with Oxy 10 mg PO, administered prior to PT session. Pulses equal bilaterally, patient denies SOB, dizziness, lightheadedness, or chest pain. IV patent, saline locked. Back dsg is CDI. Patient voiding in the restroom. Call light in reach.
--- NOTE | 2020-05-04 10:25 | PT.IPTN ---
Current Diagnoses Major depressive disorder, single episode, unspecified (05/01/20) Anxiety disorder, unspecified (05/01/20) Obstructive sleep apnea (adult) (pediatric) (05/01/20) Spondylolisthesis, lumbar region (05/01/20) Spinal stenosis, lumbar region with neurogenic claudication (05/01/20) Personal history of nicotine dependence (05/01/20) Other specified postprocedural states (05/01/20) Surgery Performed Operation Date: 05/01/20 09:45 Actual Procedures p L34 & L45 laminectomies & instrumented fusion (TLIF) w. bone graft - Marek Srinivasan MD Physical Therapy Treatment Note M2 PT-IP Current Condition Start: 05/02/20 08:20 Freq: NEEDED Status: Discharge Protocol: Document 05/02/20 09:45 (Rec: 05/02/20 12:11 [id number]) Physical Therapy Current Condition Current Condition Evaluation Date 05/02/20 Treatment Diagnosis L3-5 laminectomies and TLIF, difficulty for walking Onset Date 05/01/20 Precautions Lumbar Precautions Log Roll,No Twisting,Limit Bending,Lifting Restriction of 10 lbs,Gait Belt above Incisional Area Weight Bearing Status Weight Bearing Status Weight Bear as Tolerated M3 PT-IP Subjective Start: 05/02/20 08:20 Freq: NEEDED Status: Discharge Protocol: Document 05/04/20 10:01 CLB (Rec: 05/04/20 12:32 CLB [id number]) Subjective Physical Therapy Visit Type Type Treatment Note Visit Start Time 10:01 Visit Stop Time 10:25 Total Visit Minutes 24 Notes Pt present for CG training. Number of CONTRACTING SUPPORT SPECIALIST Visits 4 Physical Therapy Visit Comments Patient Comments Pt agreeable to mobilize with PT. Therapy Pain Assessment Pain When Pain Assessed During Mobility Pain Present Pain Present Pain Reported M4 PT-IP Mobility and Gait Start: 05/02/20 08:20 Freq: NEEDED Status: Discharge Protocol: Document 05/04/20 10:01 CLB (Rec: 05/04/20 12:32 CLB [id number]) PT-Bed Mobility Assessment Rolling Type of Rolling Log Rolling,Roll to Right Level of Assist Standby Assistance Supine to Sit Supine to Sit Standby Assistance Sit to Supine Sit to Supine Standby Assistance Scooting Scooting to Edge of Bed Standby Assistance PT-Transfer Assessment Sit to and From Stand Sit to and from Stand Standby Assistance,1 Person Assistance,Use of Upper Extremities Equipment Transfer Assistive Device Gait Belt,Front Wheeled Walker Orthotic/Prosthetic Devices or Brace: No Transfers Transfer Destination Bed,Toilet Transfer Technique Stand Step Pivot Transfer Ability Level of Assist Standby Assistance,Use of Upper Extremities Comments Mobility Comments Pt able to perform SBA for all bed mobility. Pt able to perform sit<>stand from toilet with use of wall rails SBA. Pt required SBA while washing hands at counter. Pt ambulated in nuñez to therapy stairs and climbed three stairs with cane and ARC WELDER provided by . Pt returned to room requiring SBA for reverse LR to supine. Left pt in bed with all needs within reach and alarm on. Informed RN pt seems able to d/c home with husbands assist. Gait Assessment Gait Gait Assistance Required: Standby Assistance Distance (Feet) 175 Able to Maintain Weight Bearing Status Yes During Gait Assistive Devices Assistive Device Gait Belt,Front Wheeled Walker Gait Deviations General Gait Pattern Decreased Stride Length, Decreased Feet Clearance Factors Limiting Gait Function Factors Limiting Gait Function Decreased Activity Tolerance, Decreased Strength,Limited Range of Motion,Pain,Poor Balance Comments Gait Comments Pt is able to ambulate SBA with good safety awareness and SBA provided by . Stair Climbing Assessment Evaluation Level of Assist On Stairs Contact Guard Assistance,1 Person Assistance Devices Stair Climbing Assistive Devices Straight Cane Technique/Endurance Stair Climbing Direction Ascend and Descend Stair Climbing Technique Step to Step Number of Steps Climbed 3 Stair Climbing Set # Repetitions (reps) 1 Comments Stair Climbing Comments Pt climbed three steps with step to step pattern, pt provided ARC WELDER while pt used SPC in right hand. M5 PT-IP Objective Assessments Start: 05/02/20 08:20 Freq: NEEDED Status: Discharge Protocol: Document 05/02/20 14:38 LD (Rec: 05/02/20 16:19 LD [id number]) Orientation Orientation/Cognition Level of Alertness Alert Orientation Name,Age,Birthday,Month,Date, Year,Day of Week,Place, Situation Language Function Ability No Deficits Noted Safety Awareness Understands Safety Issues Memory Description No Deficits Noted M6 PT-IP Treatment Start: 05/02/20 08:20 Freq: NEEDED Status: Discharge Protocol: Document 05/02/20 14:38 LD (Rec: 05/02/20 16:19 LD [id number]) Physical Therapy Treatment Education Education Provided Precautions,Weight Bearing Status,Post-Op Packet,Safety M7 PT-IP Assessment and Plan Start: 05/02/20 08:20 Freq: NEEDED Status: Discharge Protocol: Document 05/04/20 10:01 CLB (Rec: 05/04/20 12:32 CLB [id number]) PT Summary Assessment and Plan Potential Rehabilitation Potential Excellent Status of Condition at Evaluation Stable Summary Impairments Pain,ROM,Strength,Balance, Sensation,Cognition,Bed Mobility,Transfers,Gait, Activity Tolerance Progress Towards Goals Progressing Toward Goals Assessment Summary Pt is SBA for LR, sidelying to sit, sit<>stand, standing balance and gait. Pt requires CGA with ARC WELDER up/down three steps as pt has no hand rails. Pt seems able to d/c home with assist of . Goals Bed Mobility Goal Independent Transfer Goal Independent,Front Wheeled Walker Gait Goal Independent,Front Wheel Walker Gait Distance 300 Other Goals 2 MARVIN without railings. Days to Meet Goals 3 Frequency of Treatment Frequency Of Treatment Twice a Day Treatment Plan Physical Therapy Treatment Plan Bed Mobility Training,Transfer Training,Gait Training, Therapeutic Exercise,Balance Retraining,Post Op Education, Discharge Planning,Hot or Cold Pack,Neuromuscular Re-ed Recommendations To Nursing Amount of Assist Needed 1 Person Assist Discharge Recommendations PT Discharge Recommendations Home with Assistance Transportation Needs at Discharge Private Vehicle
== END 2020-05-04 11:20 | disposition home or self-care (01) | DRG 455 ==
LOC: OR 08:25 → AC 08:25
PROVIDERS: Admitting Provider Orthopaedic Surgery; PCP Internal Medicine; Referring Provider Internal Medicine; Visit Provider Orthopaedic Surgery
PROC: 0SG10AJ Fusion of 2 or more Lumbar Vertebral Joints with Interbody Fusion Device, Posterior Approach, Anterior Column, Open Approach (ICD-10-PCS; principal; 2020-05-01 09:45)
DX: M48.062 Spinal stenosis, lumbar region with neurogenic claudication (principal); I10 Essential (primary) hypertension; M43.16 Spondylolisthesis, lumbar region; G89.18 Other acute postprocedural pain; E78.5 Hyperlipidemia, unspecified; F41.9 Anxiety disorder, unspecified; G47.33 Obstructive sleep apnea (adult) (pediatric); Z87.891 Personal history of nicotine dependence; Z20.822 Contact with and (suspected) exposure to COVID-19
CPT/HCPCS: 36415; 72100; 76000; 82947; 82962; 83036; 85014; 85018; 87635; 97116; 97161; 97165; 97530; 97535; C1776; C9803; J0330; J0595; J0690; J1100; J1170; J2274; J2405; J2704; J3010

== ENCOUNTER → 2021-05-17 09:29 | Outpatient (CLI) | payer MEDICARE, BC, SELFPAY ==
[2020-05-01 15:12] VITALS: BMI 29.7
[2021-05-17 10:36] LABS: Hemoglobin A1C% w Est Avg Glu 6.1 % (4.0-6.0)
[2021-05-17 11:13] LABS: Alanine Aminotransferase 44 IU/L (<35); Albumin 4.3 g/dL (3.5-5.0); Albumin Globulin Ratio 1.3 (1.0-2.8); Alkaline Phosphatase 60 U/L (38-126); Aspartate Aminotransferase 50 IU/L (14-36); BUN Creatinine Ratio 28.8 (6-22); Bilirubin Total 0.8 mg/dL (0.2-1.3); Blood Urea Nitrogen 15 mg/dL (7-17); Calcium 9.5 mg/dL (8.4-10.2); Carbon Dioxide 28 mmol/L (22-32); Chloride 104 mmol/L (98-107); Cholesterol 235 mg/dL (140-199); Estimated Glomerular Filt Rate > 60.0 mL/min (>60); Globulin 3.2 g/dL (1.7-4.1); Glucose 130 mg/dL (80-110); HDL Cholesterol 67 mg/dL (40-60); HEMOLYSIS < 15 (0-50); LDL Cholesterol Calculated 132 mg/dL (<100); Potassium 4.2 mmol/L (3.4-5.1); Sodium 137 mmol/L (137-145); Total Protein 7.5 g/dL (6.3-8.2); Triglycerides 178 mg/dL (35-150)
[2021-05-17 11:29] LABS: Vitamin D 25 Hydroxy (D3) 65.9 ng/mL (30.0-100.0)
[2021-05-20 15:52] LABS: Hep C Virus Ab w/Reflex Quant NEGATIVE s/c (NEGATIVE)
== END ==
PROVIDERS: PCP Internal Medicine; Referring Provider Internal Medicine; Visit Provider Internal Medicine
DX: E55.9 Vitamin D deficiency, unspecified (principal); E78.2 Mixed hyperlipidemia; Z11.59 Encounter for screening for other viral diseases; I10 Essential (primary) hypertension; E11.3219 Type 2 diabetes mellitus with mild nonproliferative diabetic retinopathy with macular edema, unspecified eye
CPT/HCPCS: 36415; 80053; 80061; 82306; 83036; 86803

== ENCOUNTER → 2021-06-26 11:52 | Outpatient (CLI) | payer MEDICARE, BC, SELFPAY ==
[2020-05-01 15:12] VITALS: BMI 29.7
--- NOTE | 2021-06-26 11:56 | DI.RAD.S_ITS ---
PROCEDURE: XR KNEE RT 1TO2V INDICATIONS: Pain in right knee TECHNIQUE: 3 views of the knee were acquired. COMPARISON: None. FINDINGS: Bones: Moderate tricompartmental degenerative changes of the right knee. Prominent marginal osteophytes of the patellofemoral and lateral femorotibial compartments. Soft tissues: Small joint effusion. No suspicious soft tissue calcifications. IMPRESSION: Right knee without acute fracture or dislocation. Tricompartmental degenerative changes of the right knee with small suprapatellar joint effusion. Dictated by: Joey Calderon M.D. on 06/26/2021 at 15:01 Approved by: Joey Calderon M.D. on 06/26/2021 at 15:02
== END ==
PROVIDERS: PCP Internal Medicine; Referring Provider Internal Medicine; Visit Provider Internal Medicine
DX: M25.561 Pain in right knee (principal); M25.461 Effusion, right knee
CPT/HCPCS: 73560

== ENCOUNTER → 2022-01-16 12:12 | Outpatient (CLI) | payer MEDICARE, BC, SELFPAY ==
[2020-05-01 15:12] VITALS: BMI 29.7
== END ==
PROVIDERS: PCP Internal Medicine; Referring Provider Internal Medicine; Visit Provider Internal Medicine
DX: M85.852 Other specified disorders of bone density and structure, left thigh (principal); Z13.820 Encounter for screening for osteoporosis; Z78.0 Asymptomatic menopausal state; Z90.710 Acquired absence of both cervix and uterus; Z79.890 Hormone replacement therapy
CPT/HCPCS: 77080

== ENCOUNTER → 2022-02-10 11:32 | Outpatient (CLI) | payer MEDICARE, BC, SELFPAY ==
[2020-05-01 15:12] VITALS: BMI 29.7
--- NOTE | 2022-02-10 | DI.MG.S_ITS ---
BILATERAL DIGITAL SCREENING MAMMOGRAM 3D/2D WITH CAD: 02/10/2022 CLINICAL: Routine screening. Comparison is made to exams dated: 05/31/2013 mammogram, 02/26/2009 mammogram, and 06/28/2007 mammogram - [facility]. There are scattered areas of fibroglandular density in both breasts (category b / 25%-50% glandular tissue). Current study was also evaluated with a Computer Aided Detection (CAD) system. No significant masses, calcifications, or other findings are seen in either breast. There has been no significant interval change. IMPRESSION: NEGATIVE There is no mammographic evidence of malignancy. A 1 year screening mammogram is recommended. Based on the Tyrer Cuzick model (a risk assessment model) the patient's lifetime risk is 4.0% and her 10 year risk is 2.8%. According to the ACR, ACS, and NCCN guidelines, an annual breast MRI exam along with mammogram is recommended if the patient's lifetime risk is 20% or greater. This exam was interpreted at Station ID: [id number]. NOTE: For mammograms, a report in lay terms will be sent to the patient. Approximately 15% of breast malignancies will not be visualized mammographically. In the management of a palpable breast mass, a negative mammogram must not discourage biopsy of a clinically suspicious lesion. Electronically Signed By: Prakash Seay M.D., jr/yazan:02/17/2022 10:32:48 letter sent: Normal Exam ACR BI-RADS Category 1: Negative 3341F
== END ==
PROVIDERS: PCP Internal Medicine; Referring Provider Internal Medicine; Visit Provider Internal Medicine
DX: Z12.31 Encounter for screening mammogram for malignant neoplasm of breast (principal)
CPT/HCPCS: 77063; 77067

== ENCOUNTER → 2022-09-09 14:17 | Outpatient (CLI) | payer MEDICARE, BC, SELFPAY ==
[2020-05-01 15:12] VITALS: BMI 29.7
--- NOTE | 2022-09-09 | DI.RAD.S_ITS ---
PROCEDURE: XR ANKLE RT MIN 3V INDICATIONS: Unspecified injury of right ankle, initial encounter TECHNIQUE: 3 views of the ankle were acquired. COMPARISON: None. FINDINGS: Bones: No fractures or dislocations. Ankle mortise is normally aligned. No suspicious bony lesions. Soft tissues: Possible tibiotalar joint effusion. IMPRESSION: No acute fracture identified. Possible tibiotalar fusion. If symptoms persist, follow-up radiographs and/or CT or MRI may be helpful for further evaluation. Dictated by: Kameron Gruber M.D. on 09/09/2022 at 18:11 Approved by: Kameron Gruber M.D. on 09/09/2022 at 18:14
== END ==
PROVIDERS: PCP Internal Medicine; Referring Provider Internal Medicine; Visit Provider Internal Medicine
DX: S99.911A Unspecified injury of right ankle, initial encounter (principal); X58.XXXA Exposure to other specified factors, initial encounter
CPT/HCPCS: 73610

== ENCOUNTER → 2024-06-15 12:51 | Outpatient (CLI) | payer MEDICARE, BC, SELFPAY ==
[2020-05-01 15:12] VITALS: BMI 29.7
--- NOTE | 2024-06-15 12:52 | DI.MG.S_ITS ---
MM screening mammo BI: 06/15/2024. BI-RADS: 2 CLINICAL: 73-year old female for bilateral screening mammogram. Tyrer-Cuzick lifetime risk of 3.1%. No personal or first-degree family history of breast cancer. PRIOR EXAMS 02/10/2022. MAMMOGRAPHY TECHNIQUE: 2D and 3D (tomosynthesis) digital mammographic views obtained, with additional images as needed for full coverage. Current study was also evaluated with a Computer Aided Detection (CAD) system. DENSITY B. There are scattered areas of fibroglandular density. MAMMOGRAPHY FINDINGS Bilateral: Benign-appearing calcifications noted. There are no suspicious masses, calcifications, or other findings in the breast. No significant change from comparison. IMPRESSION: * No evidence of malignancy with benign findings. RECOMMENDATIONS Bilateral * Annual screening mammography. OVERALL ASSESSMENT CATEGORY BI-RADS-2: Benign. The [employer] recommends annual screening mammography beginning at age 40 for women with average risk of breast cancer. ELECTRONICALLY SIGNED: Bernice Vásquez M.D. on 06/15/2024 at 01:34:50 PM PT Interpreting Station ID: [id number]
== END ==
PROVIDERS: PCP Internal Medicine; Referring Provider Internal Medicine; Visit Provider Internal Medicine
DX: Z12.31 Encounter for screening mammogram for malignant neoplasm of breast (principal)
CPT/HCPCS: 77063; 77067